=== PATIENT | female | born 1960 | race Two or more races ===

== ENCOUNTER 2024-09-23 14:59 | Inpatient (IN) | payer MEDICAID, OTHER ==
[~2024-09-23] VITALS: Ht 167.6 cm; Wt 86.4 kg
[2024-09-23] MEDS: SODIUM CHLORIDE 0.9% 1,000 ML IV ONE (15:36)
[2024-09-23 15:57] LABS: Basophils # (auto) 0.1 10 ^3/uL (0-0.2); Basophils % (auto) 0.8 % (0.0-2.0); Eosinophils # (auto) 0.3 10 ^3/uL (0-0.8); Lymphocytes # (auto) 2.1 10 ^3/uL (0.4-5.4); Mean Corpuscular Hemoglobin 28.9 pg (28.0-32.0)
[2024-09-23 15:58] LABS: Eosinophils % (auto) 4.6 % (0.0-7.0); Hematocrit 30.5 % (36.0-46.0); Lymphocytes % (auto) 29.5 % (10.0-50.0); Mean Corpuscular Hgb Conc. 32.7 g/dL (32.0-36.0); Mean Corpuscular Volume 88.5 fL (80.0-100.0); Monocytes # (auto) 0.6 10 ^3/uL (0-1.3); Monocytes % (auto) 8.6 % (0.0-12.0); Neutrophils # (auto) 4.1 10 ^3/uL (1.6-8.6); Neutrophils % (auto) 56.5 % (37.0-80.0); Platelet Count (auto) 627 10^3/uL (140-450); Red Blood Cells 3.45 10^6/uL (4.0-5.20); Red Cell Distribution Width 14.6 % (11.8-14.3); White Blood Cell 7.2 10^3/uL (4.4-10.8)
[2024-09-23 16:08] VITALS: PULSE 67; RESP 15; O2SAT 98
[2024-09-23 16:11] LABS: Alanine Aminotransferase 20 U/L (7-40); Albumin 3.9 g/dL (3.2-4.8); Alkaline Phosphatase 97 U/L (46-116); Anion Gap 7 (5-15); Aspartate Aminotransferase 31 U/L (13-40); Calcium 9.7 mg/dL (8.7-10.4); Carbon Dioxide 27 mmol/L (20-31); Chloride 105 mmol/L (98-107); Potassium 4.4 mmol/L (3.5-5.1); Sodium 139 mmol/L (136-145)
[2024-09-23 16:12] LABS: Bilirubin, Total 0.3 mg/dL (0.2-1.0); Total Protein 6.9 g/dL (5.7-8.2)
--- NOTE | 2024-09-23 16:13 | DVH ---
CHEST RADIOGRAPH Indication: Shortness of breath Technique: Single frontal view of the chest was obtained COMPARISON: None FINDINGS: Lines and Tubes: None Lungs: Increased interstitial prominence Pleura: No effusion. No pneumothorax. Cardiomediastinal contours: Unremarkable Bones: Unremarkable IMPRESSION: Mild congestion
[2024-09-23 16:20] LABS: Blood Urea Nitrogen 23 mg/dL (9-23); Glucose 185 mg/dL (74-106)
--- NOTE | 2024-09-23 17:19 | ED.PDOC ---
HPI (NEURO) HPI Comments 64y F who presents to the ED via EMS for chief complaint of dizziness. pt states she has been having dizziness and generalized weakness for the past 1 days. Pt states she has been having weakness and malaise which has gotten progressively worse and called EMS to the scene. EMS states pt had vitals checked upon arrival and pt was noted to have BP pf 105 / 58 and states despite having history of HTN, pt took her HTN Meds yesterday but not today. Pt states otherwise has was discharged from [facility] [place] cancer resection and discharged on Thursday to home. Pt states since, she has been having generalized aches and pains with noted abdominal pain. Pt states she was given pain Meds after discharge from [facility] but states they have not helped. Pt otherwise denies any other symptoms at this time. 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 Family History Family History: Unknown Social History Smoker: Non-Smoker Alcohol: Denies ETOH Use Drugs: Denies Drug Use Lives In: Home Constitutional: reports: malaise, weakness; denies: chills, diaphoresis, fatig ue, fever, sweats, others EENTM: denies: blurred vision, double vision, ear bleeding, ear discharge, ear drainage, ear pain, ear ringing, eye pain, eye redness, hearing loss, mouth pain, mouth swelling, nasal discharge, nose bleeding, nose congestion, nose pain, photophobia, tearing, throat pain, throat swelling, voice changes, others Respiratory: denies: cough, hemoptysis, orthopnea, SOB at rest, shortness of breath, SOB with excertion, stridor, wheezing, others Cardiovascular: denies: chest pain, dizzy spells, diaphoresis, Dyspnea on exertion, edema, irregular heart beat, left arm pain, lightheadedness, palpitations, PND, syncope, others Gastrointestinal: reports: abdominal pain; denies: abdomen distended, blood streaked bowels, constipated, diarrhea, dysphagia, difficulty swallowing, hematemesis, melena, nausea, poor appetite, poor fluid intake, rectal bleeding, rectal pain, vomiting, others Genitourinary: denies: abnormal vagina bleeding, burning, dyspareunia, dysuria, flank pain, frequency, hematuria, incontinence, pain, , vagina discharge, urgency, others Neurological: reports: dizziness, weakness; denies: fainting, headache, left sided numbness, left sided weakness, numbness, paresthesia, pre-existing deficit, right sided numbness, right sided weakness, seizure, speech problems, tingling, tremors, others Musculoskeletal: denies: back pain, gout, joint pain, joint swelling, muscle pain, muscle stiffness, neck pain, others Integumetry: denies: bruises, change in color, change in hair/nails, dryness, laceration, lesions, lumps, rash, wounds, others Allergic/Immunocompromised: denies: Difficulty Healing, Frequent Infections, Hives, Itching, others Hematologic/Lymphatic: denies: anemia, blood clots, easy bleeding, easy bruisi ng, swollen glands, others Endocrine: denies: excessive hunger, excessive sweating, excessive thirst, exce ssive urination, flushing, intolerance to cold, intolerance to heat, unexplained weight gain, unexplained weight loss, others Psychiatric: denies: anxiety, bipolar disorder, depression, hopeless, panic disorder, schizophrenia, sleepless, suicidal, others All Other Systems: Reviewed and Negative Physical Exam General Appearance: Moderate Distress (Patient appears to be in moderate distress due to her general weakness and abdominal pain concerns.), Obese HEENT: Normal ENT Inspection, Pharynx Normal, TMs Normal Neck: Full Range of Motion, Non-Tender, Normal, Normal Inspection Respiratory: Chest Non-Tender, Lungs Clear, No Accessory Muscle Use, No Respiratory Distress, Normal Breath Sounds Cardiovascular: No Edema, No JVD, No Murmur, No Gallop, Normal Peripheral Pulses, Regular Rate/Rhythm Breast Exam: Deferred Gastrointestinal: Other (Diffuse abdominal tenderness to palpation. Surgical site appreciated. 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 Was a procedure done?: No Differential Diagnosis (SZ) General Weakness: Anemia, Dehydration, Electrolyte imbalance, Encephalopathy, Hypoglycemia, Hypotension, Hypovolemia, Other (chronic pain syndrome) Headache: Other (Dizziness) X-Ray, Labs, Meds, VS Vital Signs Date Time Temp Pulse Resp B/P (MAP) Pulse Ox O2 Delivery O2 Flow Rate FiO2 09/23/24 21:10 81 16 163/83 09/23/24 20:40 82 18 173/75 09/23/24 20:00 79 18 152/65 (94) 99 09/23/24 18:00 79 15 167/83 (111) 98 09/23/24 17:00 75 15 158/73 (101) 98 09/23/24 16:30 71 15 135/66 (89) 98 09/23/24 16:08 67 15 98 Room Air* 0 21 09/23/24 16:06 97.7 66 15 130/68 (88) 98 97.7 09/23/24 15:09 98.9 64 18 108/60 (76) 95 09/23/24 15:02 66 Lab Test 09/23/24 18:03 09/23/24 16:35 09/23/24 15:50 09/23/24 15:41 Range/Units Troponin I High Sensitivity 7 6 7 </=34 ng/L POC Glucose 191 H 70-106 mg/dl White Blood Count 7.2 4.4-10.8 10^3/uL Red Blood Count 3.45 L 4.0-5.20 10^6/uL Hemoglobin 10.0 L 12.2-16.2 g/dL Hematocrit 30.5 L 36.0-46.0 % Mean Corpuscular Volume 88.5 80.0-100.0 fL Mean Corpuscular Hemoglobin 28.9 28.0-32.0 pg Mean Corpuscular Hemoglobin Concent 32.7 32.0-36.0 g/dL Red Cell Distribution Width 14.6 H 11.8-14.3 % Platelet Count 627 H 140-450 10^3/uL Mean Platelet Volume 6.6 L 6.9-10.8 fL Neutrophils (%) (Auto) 56.5 37.0-80.0 % Lymphocytes (%) (Auto) 29.5 10.0-50.0 % Monocytes (%) (Auto) 8.6 0.0-12.0 % Eosinophils (%) (Auto) 4.6 0.0-7.0 % Basophils (%) (Auto) 0.8 0.0-2.0 % Neutrophils # (Auto) 4.1 1.6-8.6 10 ^3/uL Lymphocytes # (Auto) 2.1 0.4-5.4 10 ^3/uL Monocytes # (Auto) 0.6 0-1.3 10 ^3/uL Eosinophils # (Auto) 0.3 0-0.8 10 ^3/uL Basophils # (Auto) 0.1 0-0.2 10 ^3/uL Nucleated Red Blood Cells 0.0 % D-Dimer, Quantitative 20.23 H 0.0-0.49 mg/L FEU Sodium Level 139 136-145 mmol/L Potassium Level 4.4 3.5-5.1 mmol/L Chloride Level 105 98-107 mmol/L Carbon Dioxide Level 27 20-31 mmol/L Anion Gap 7 5-15 Blood Urea Nitrogen 23 9-23 mg/dL Creatinine 1.44 H 0.550-1.02 mg/dL Glomerular Filtration Rate Calc 41 >90 mL/min BUN/Creatinine Ratio 16.0 10.0-20.0 Serum Glucose 185 H 74-106 mg/dL Calcium Level 9.7 8.7-10.4 mg/dL Total Bilirubin 0.3 0.2-1.0 mg/dL Aspartate Amino Transferase (AST) 31 13-40 U/L Alanine Aminotransferase (ALT) 20 7-40 U/L Alkaline Phosphatase 97 46-116 U/L B-Type Natriuretic Peptide 85.15 0-100 pg/mL Total Protein 6.9 5.7-8.2 g/dL Albumin 3.9 3.2-4.8 g/dL Test 09/23/24 00:00 Range/Units Urine Color Light-yellow Yellow Urine Clarity Turbid H Clear Urine pH 6.0 5.0-9.0 Urine Specific [place] 1.015 1.001-1.035 Urine Protein Negative Negative Urine Ketones Negative Negative Urine Blood Negative Negative /uL Urine Nitrite Negative Negative Urine Bilirubin Negative Negative Urine Urobilinogen Normal Negative mg/dL Urine Leukocyte Esterase Trace Negative /uL Urine RBC 4 0 - 4 /hpf Urine WBC 19 0 - 5 /hpf Urine Squamous Epithelial Cells Few <5 /hpf Urine Bacteria None seen None Seen /hpf Urine Yeast (Budding) Many None Seen /hpf Urine Glucose Normal Normal mg/dL Current Medications Medications (Trade) Dose Ordered Sig/Reji Route Start Time Stop Time Status Last Admin Sodium Chloride 1,000 ml @ 200 mls/hr Q5H ONCE IV 09/23/24 15:30 09/23/24 20:29 DC 09/23/24 15:36 Acetaminophen/ Hydrocodone Bitart ([place] 5/325MG Tab) 1 tab ONCE ONCE PO 09/23/24 17:45 09/23/24 17:46 DC 09/23/24 18:06 Hydromorphone HCl (Dilaudid Innjection) 1 mg ONCE ONCE IV 09/23/24 20:15 09/23/24 20:16 DC 09/23/24 20:40 [place] [id number] Ph: [phone] DIAGNOSTIC IMAGING Diagnostic Imaging Report : [id number] Signed PATIENT: AMRITA SILVA ACCT: [id number] UNIT: [id number] : 1960 LOC: ER ROOM / BED: / AGE / SEX: 64 / F ADM STATUS: REG ER SERVICE 1521 ORDERING PHYSICIAN: SCOOTER SOSA PAC PROCEDURE(s): CXRP - CHEST PORTABLE REASON: Shortness of breath ORDER NUMBER(s): [id number], ACCESSION NUMBER(s): [id number] CHEST RADIOGRAPH Indication: Shortness of breath Technique: Single frontal view of the chest was obtained COMPARISON: None FINDINGS: Lines and Tubes: None Lungs: Increased interstitial prominence Pleura: No effusion. No pneumothorax. Cardiomediastinal contours: Unremarkable Bones: Unremarkable IMPRESSION: Mild congestion ATED BY: FEMI STERN MD DICTATED DATE/TIME: 09/23/241608 SIGNED BY: FEMI STERN MD SIGNED DATE/TIME: 09/23/24 160 CC: X-Ray, Labs, Meds, VS Comment All studies performed the ED today were evaluated by me personally. Serum laboratories revealed a mild anemia, an elevated D-dimer and urine results confirmed a UTI. CT angio confirmed a probable right middle lobe pulmonary emboli. Additionally, imaging sewed some dilation of the pulmonary trunk and stated concerns for pulmonary arterial hypertension. EKG revealed a sinus rhythm with a rate of 66. Abnormal R-wave progression was noted with a [place] interval of 181 and a QT interval of 390. Due to the unusual CT imaging findings and the continued abdominal pain concerns. Patient will be admitted for initial management of her PE as well as a cardiac and pulmonary evaluation to address her pulmonary arterial hypertension concerns. Time of 1ST Reevaluation: 22:16 Reevaluation 1ST: Improved Consultation: PCP, Cardiology, Pulmonary Patient Education/Counseling: Diagnosis, Treatment Family Education/Counseling: Diagnosis, Treatment, No Family Present Departure 1 Departure Time of Disposition: 22:17 Impression: Primary Impression: Pulmonary emboli Additional Impressions: Pulmonary arterial hypertension UTI (urinary tract infection) Postoperative pain Disposition: ADMITTED INPATIENT Condition: Stable Discharged With: Self Critical Care Note Critical Care Time?: No Stability Stability form required: No Heart Score Heart Score: Heart Score Response (Comments) Value History N/A 0 EKG Repolarization Disturb 1 Age 45-64 1 Risk Factors 1 or 2 risk factors 1 Troponin N/A 0 Total 3 I personally scribed for SCOOTER SOSA PAC ([email or web address]) on 09/23/24 at 17:19. Electronically submitted by Jeancarlos Albarado ([email or web address]). SCOOTER SOSA PAC Sep 23, 2024 17:19
[2024-09-23] MEDS: HYDROcodone-ACET 5/325MG TAB PO ONE (18:06)
--- NOTE | 2024-09-23 18:58 | ECG ---
[facility] Test Date: 2024-09-23 Test Time: 15:02:51 Pat Name: AMRITA SILVA Department: ED Room: 0292T Gender: F Ostomy Nurse: ROBI : 1960 Requested By: SCOOTER SOSA Order Number: [id number] Reading MD: Paulo Brewster Measurements Intervals [place] Rate: 66 P: 2 OK: 181 QRS: -13 QRSD: 96 T: 65 QT: 390 QTc: 409 Interpretive Statements Sinus rhythm Abnormal R-wave progression, early transition Electronically Signed On 09-30-2024 9:47:09 PST by Paulo Brewster Please click the below link to view image of tracing.
[2024-09-23 20:23] LABS: Urine Bacteria None Seen /hpf (None Seen)
[2024-09-23] MEDS: HYDROMORPHONE HCL 1 MG/ML INJ IV ONE (20:40)
[2024-09-23 20:42] LABS: Urine Blood Negative /uL (Negative); Urine Budding Yeast MANY /hpf (None Seen); Urine Clarity Turbid (Clear); Urine Color Light-Yellow (Yellow); Urine Protein, UAD Negative (Negative); Urine Specific Gravity 1.015 (1.001-1.035); Urine Urobilinogen Normal (Negative); Urine WBC 19 /hpf (0 - 5)
[2024-09-23] MEDS: IOHEXOL 350 MG/ML 100ML IJ ONE (21:30)
--- NOTE | 2024-09-23 22:05 | DVH ---
CLINICAL INFORMATION: 64 years old, Female; Elevated D-dimer. TECHNIQUE: Axial CTA images of the chest were obtained after the uneventful administration of 100 mL of Omnipaque 350 IV contrast. Coronal and sagittal reformatted images and MIP images were obtained, reviewed, and stored. One or more of the following dose reduction techniques were used: Automated exp osure control. Adjustment of mA and/or kV according to patient size. CTDIvol = 24.92 mGy DLP = 1904.38 mGy-cm COMPARISON: Chest radiograph 09/23/2024 FINDINGS: Thyroid gland is unremarkable. Inadequate contrast bolus timing within the pulmonary arteries to evaluate for pulmonary embolism. No pulmonary embolism is noted centrally. There is suggestion of filling defect within the right middle lobe segmental and subsegmental pulmonary arteries. There is no right heart strain. Mild cardiomegaly. No evidence of aortic aneurysm. Mild dilatation of the pulmonary trunk up to 32 mm . Correlate for pulmonary arterial hypertension. No significant mediastinal lymphadenopathy. No pneumothorax, pleural effusion or focal airspace consolidation. Bibasilar, and right upper lobe at electasis. Right basilar foci of calcification. Status post cholecystectomy. Otherwise, partial view of the upper abdomen is unremarkable. Partially imaged trace perihepatic free fluid. Mild subcutaneous fat edema of the lower posterior thorax.. No destructive osseous lesions are noted. IMPRESSION: Inadequate contrast bolus timing within the pulmonary arteries to evaluate for pulmonary embolism. H owever, there appears to be filling defect within right middle lobe segmental and subsegmental pulmon ryan arteries suggestive of pulmonary embolism. Bibasilar and right middle lobe atelectasis. Dilatation of the pulmonary trunk up to 32 mm. Correlate for pulmonary arterial hypertension. Critical Result: Right middle lobe pulmonary embolism Findings discussed with dr. Cope , at 09/23/2024 10:01 PM, and acknowledged receipt and understandin g of the findings. ..
[2024-09-23] MEDS: ENOXAPARIN SOD 40 MG/0.4 ML SYRINGE SC ONE (22:10)
[2024-09-23] MEDS: NITROFURANTOIN 100 mg CAP PO ONE (22:12)
[2024-09-23] MEDS ORDERED: ACETAMINOPHEN 325 MG TAB PO PRN (23:15)
[2024-09-23] MEDS ORDERED: ONDANSETRON HCL 4 MG/2 ML VIAL IV PRN (23:15)
[2024-09-23] MEDS ORDERED: NITROGLYCERIN 0.4 MG SL TAB SL PRN (23:15)
[2024-09-23] MEDS ORDERED: HEPARIN DRIP/D5W 100UNITS/ML 250 ML IV SCH (23:15)
[2024-09-23] MEDS ORDERED: DEXTROSE (50%) 50ML SYRG IV PRN (23:15)
[2024-09-23] MEDS ORDERED: DOCUSATE SOD 100 MG CAP PO PRN (23:15)
[2024-09-23] MEDS ORDERED: HYDROcodone-ACET 5/325MG TAB PO PRN (23:15)
[2024-09-23] MEDS ORDERED: MORPHINE SULFATE INJ 2 MG/ml SYRG IV PRN (23:15)
--- NOTE | 2024-09-23 23:21 | DVHHP2 ---
History of Present Illness Reason for Visit: Pulmonary emboli History of Present Illness The patient is a 64-year-old female past medical history of colon cancer, DM, hypothyroidism, and hypertension who presented to [facility] ED with complaint of dizziness. Patient reports symptoms progressively get worse with generalized weakness, malaise, abdominal pain, getting worse that prompted this visit. Patient reports she was recently admitted at [facility] for colon cancer resection and discharged home Thursday. Patient was seen and evaluated in the ED, laboratory data shows WBC 7.2, hemoglobin 10.0, hematocrit 30.5, platelets 627, sodium 139, potassium 4.4, BUN 23, creatinine 1.44, GFR 41, glucose 185, troponin 7, D-dimer 20.23. CT Angiography revealing dilatation of the pulmonary trunk up to 32 mm, correlate for pulmonary atrial hypertension, right middle lobe pulmonary embolism. Patient was started heparin drip, please see medication orders section in the computer. On my assessment, patient denied chest pain, no headache, no dizziness, no diaphoresis, currently on oxygen, no nausea, no vomiting, no fever, no chills. Patient was admitted for further evaluation and medical management. Past Medical History Colon cancer, DM, HTN Past Surgical History Recent colon cancer resection Family History Reviewed, noncontributory to the management of this case. Past Social History The patient lives at home, denies smoking, alcohol or illicit drugs abuse. Review of Systems Constitutional: Yes: Weakness, Malaise; No: Fever, Chills, Sweats, Other Eyes: No: Pain, Vision change, Conjunctivae inflammation, Eyelid inflammation, Other, Redness ENT: No: Ear pain, Ear discharge, Nose pain, Nose discharge, Nose congestion, Mouth pain, Mouth swelling, Throat pain, Throat swelling, Other Respiratory: No: Cough, Dry, Shortness of breath, SOB with excertion, Wheezing, Hemoptysis, Pleuritic Pain, Sputum, Wheezing, Other Cardiovascular: No: Chest Pain, Palpitations, Orthopnea, Paroxysmal Noc. Dyspnea, Edema, Lt Headedness, Other Gastrointestinal: Abdominal Pain; No: Nausea, Vomiting, Diarrhea, Constipation, Melena, Hematochezia, Other Genitourinary: No Dysuria, No Frequency, No Incontinence, No Hematuria, No Retention, No Other Musculoskeletal: No: other, neck pain, shoulder pain, arm pain, back pain, hand pain, leg pain, foot pain Skin: No: Rash, Lesions, Jaundice, Bruising, Other Neurological: Weakness, Other (Dizziness); No: Numbness, Incoordination, Change in speech, Confusion, Seizures Allergies: Coded Allergies: NO KNOWN ALLERGIES (Unverified , 09/23/24) Exam Vital Signs Vital Signs Date Time Temp Pulse Resp B/P (MAP) Pulse Ox O2 Delivery O2 Flow Rate FiO2 09/23/24 22:00 92 14 157/78 (104) 98 09/23/24 19:30 Room Air* 0 21 09/23/24 16:06 97.7 97.7 General Appearance: Alert, Oriented X3, Cooperative, No acute distress HEENT: Atraumatic, PERRLA, EOMI, Mucous membr. moist/pink Respiratory: Normal air movement, Other (Diminished breath sounds) Cardiovascular: Regular rate, Normal S1, Normal S2, No murmurs Abdominal: Normal bowel sounds, Soft, No hepatospenomegaly, No masses, Other (Reports tenderness) Extremities: No clubbing, No cyanosis, No edema, Normal pulses, No tenderness/swelling Skin: No rashes, No breakdown, No significant lesion Neuro: Normal speech, Normal tone, Sensation intact, Cranial nerves 3-12 NL, Reflexes 2+, Other (Generalized weakness) Psych/Mental Status: Mental status NL, Mood NL Labs/Xrays Labs Test 09/23/24 18:03 09/23/24 15:50 09/23/24 15:41 09/23/24 00:00 Range/Units Troponin I High Sensitivity 7 </=34 ng/L POC Glucose 191 H 70-106 mg/dl White Blood Count 7.2 4.4-10.8 10^3/uL Red Blood Count 3.45 L 4.0-5.20 10^6/uL Hemoglobin 10.0 L 12.2-16.2 g/dL Hematocrit 30.5 L 36.0-46.0 % Mean Corpuscular Volume 88.5 80.0-100.0 fL Mean Corpuscular Hemoglobin 28.9 28.0-32.0 pg Mean Corpuscular Hemoglobin Concent 32.7 32.0-36.0 g/dL Red Cell Distribution Width 14.6 H 11.8-14.3 % Platelet Count 627 H 140-450 10^3/uL Mean Platelet Volume 6.6 L 6.9-10.8 fL Neutrophils (%) (Auto) 56.5 37.0-80.0 % Lymphocytes (%) (Auto) 29.5 10.0-50.0 % Monocytes (%) (Auto) 8.6 0.0-12.0 % Eosinophils (%) (Auto) 4.6 0.0-7.0 % Basophils (%) (Auto) 0.8 0.0-2.0 % Neutrophils # (Auto) 4.1 1.6-8.6 10 ^3/uL Lymphocytes # (Auto) 2.1 0.4-5.4 10 ^3/uL Monocytes # (Auto) 0.6 0-1.3 10 ^3/uL Eosinophils # (Auto) 0.3 0-0.8 10 ^3/uL Basophils # (Auto) 0.1 0-0.2 10 ^3/uL Nucleated Red Blood Cells 0.0 % D-Dimer, Quantitative 20.23 H 0.0-0.49 mg/L FEU Sodium Level 139 136-145 mmol/L Potassium Level 4.4 3.5-5.1 mmol/L Chloride Level 105 98-107 mmol/L Carbon Dioxide Level 27 20-31 mmol/L Anion Gap 7 5-15 Blood Urea Nitrogen 23 9-23 mg/dL Creatinine 1.44 H 0.550-1.02 mg/dL Glomerular Filtration Rate Calc 41 >90 mL/min BUN/Creatinine Ratio 16.0 10.0-20.0 Serum Glucose 185 H 74-106 mg/dL Calcium Level 9.7 8.7-10.4 mg/dL Total Bilirubin 0.3 0.2-1.0 mg/dL Aspartate Amino Transferase (AST) 31 13-40 U/L Alanine Aminotransferase (ALT) 20 7-40 U/L Alkaline Phosphatase 97 46-116 U/L B-Type Natriuretic Peptide 85.15 0-100 pg/mL Total Protein 6.9 5.7-8.2 g/dL Albumin 3.9 3.2-4.8 g/dL Urine Color Light-yellow Yellow Urine Clarity Turbid H Clear Urine pH 6.0 5.0-9.0 Urine Specific [place] 1.015 1.001-1.035 Urine Protein Negative Negative Urine Ketones Negative Negative Urine Blood Negative Negative /uL Urine Nitrite Negative Negative Urine Bilirubin Negative Negative Urine Urobilinogen Normal Negative mg/dL Urine Leukocyte Esterase Trace Negative /uL Urine RBC 4 0 - 4 /hpf Urine WBC 19 0 - 5 /hpf Urine Squamous Epithelial Cells Few <5 /hpf Urine Bacteria None seen None Seen /hpf Urine Yeast (Budding) Many None Seen /hpf Urine Glucose Normal Normal mg/dL PATIENT: AMRITA SILVA ACCT: [id number] UNIT: [id number] : 1960 LOC: ER ROOM / BED: / AGE / SEX: 64 / F ADM STATUS: REG ER SERVICE 53 ORDERING PHYSICIAN: SCOOTER COPE PAC PROCEDURE(s): CTACH - CT ANGIO CHEST CONTRAST REASON: Elevated D-dimer ORDER NUMBER(s): [id number], ACCESSION NUMBER(s): [id number] CLINICAL INFORMATION: 64 years old, Female; Elevated D-dimer. TECHNIQUE: Axial CTA images of the chest were obtained after the uneventful administration of 100 mL of Omnipaque 350 IV contrast. Coronal and sagittal reformatted images and MIP images were obtained, reviewed, and stored. One or more of the following dose reduction techniques were used: Automated exposure control. Adjustment of mA and/or kV according to patient size. CTDIvol = 24.92 mGy DLP = 1904.38 mGy-cm COMPARISON: Chest radiograph 09/23/2024 FINDINGS: Thyroid gland is unremarkable. Inadequate contrast bolus timing within the pulmonary arteries to evaluate for pulmonary embolism. No pulmonary embolism is noted centrally. There is suggestion of filling defect within the right middle lobe segmental and subsegmental pulmonary arteries. There is no right heart strain. Mild cardiomegaly. No evidence of aortic aneurysm. Mild dilatation of the pulmonary trunk up to 32 mm. Correlate for pulmonary arterial hypertension. No significant mediastinal lymphadenopathy. No pneumothorax, pleural effusion or focal airspace consolidation. Bibasilar, and right upper lobe atelectasis. Right basilar foci of calcification. Status post cholecystectomy. Otherwise, partial view of the upper abdomen is u nremarkable. Partially imaged trace perihepatic free fluid. Mild subcutaneous fat edema of the lower posterior thorax. No destructive osseous lesions are noted. IMPRESSION: Inadequate contrast bolus timing within the pulmonary arteries to evaluate for pulmonary embolism. However, there appears to be filling defect within right middle lobe segmental and subsegmental pulmonary arteries suggestive of pulmonary embolism. Bibasilar and right middle lobe atelectasis. Dilatation of the pulmonary trunk up to 32 mm. Correlate for pulmonary arterial hypertension. Critical Result: Right middle lobe pulmonary embolism Findings discussed with dr. Cope, at 09/23/2024 10:01 PM, and acknowledged receipt and understanding of the findings. ORDERING PHYSICIAN: SCOOTER COPE PAC PROCEDURE(s): CXRP - CHEST PORTABLE REASON: Shortness of breath ORDER NUMBER(s): [id number], ACCESSION NUMBER(s): [id number] CHEST RADIOGRAPH Indication: Shortness of breath Technique: Single frontal view of the chest was obtained COMPARISON: None FINDINGS: Lines and Tubes: None Lungs: Increased interstitial prominence Pleura: No effusion. No pneumothorax. Cardiomediastinal contours: Unremarkable Bones: Unremarkable IMPRESSION: Mild congestion Assessment/Plan Assessment/Plan Pulmonary emboli Postoperative pain Pulmonary arterial hypertension Acute renal injury Diabetes mellitus with hyperglycemia Plan 1. Admit to telemetry unit 2. Breathing treatment 3. Pain control management 4. Management of fluids and electrolytes 5. Consultation for pulmonology 6. Diagnostic tests CT Angiography 7. DVT prophylaxis-heparin drip 8. Repeat labs CBC, CMP in a.m. 9. Continue with current medical management 10. Treatment plan discussed with patient and RN. Patient verbalized understanding. Plan discussed with: Patient, Daughter (At bedside), Other (RN) Problem List: (1) Pulmonary emboli (2) Postoperative pain (3) Pulmonary arterial hypertension (4) Acute renal injury (5) Diabetes mellitus with hyperglycemia Date of Service: Sep 23, 2024 Billing Provider: JUANITO JONAS DNP Common Visit Codes: [id number] INP/OBS CARE (HIGH) JUANITO JONAS DNP Sep 23, 2024 23:21
[2024-09-23] MEDS: SODIUM CHLORIDE 0.9% 1,000 ML IV SCH (23:47)
[2024-09-23] MEDS: MORPHINE SULFATE INJ 2 MG/ml SYRG IV PRN (23:48)
[2024-09-24] VITALS (7 sets, daily range): BP systolic 117–159; BP diastolic 55–74; PULSE 66–90; RESP 16–18; TEMP 97.4–98.8; O2SAT 96–100
[2024-09-24 00:12] LABS: Basophils # (auto) 0 10 ^3/uL (0-0.2); Eosinophils # (auto) 0.3 10 ^3/uL (0-0.8); Hemoglobin 10.1 g/dL (12.2-16.2); Monocytes # (auto) 0.5 10 ^3/uL (0-1.3); Nucleated Red Blood Cells % 0.1 %; White Blood Cell 7.1 10^3/uL (4.4-10.8)
[2024-09-24 00:13] LABS: Basophils % (auto) 0.6 % (0.0-2.0); Eosinophils % (auto) 4.5 % (0.0-7.0); Hematocrit 30.8 % (36.0-46.0); Lymphocytes # (auto) 2.7 10 ^3/uL (0.4-5.4); Lymphocytes % (auto) 37.4 % (10.0-50.0); Mean Corpuscular Hgb Conc. 32.7 g/dL (32.0-36.0); Mean Corpuscular Volume 88.5 fL (80.0-100.0); Monocytes % (auto) 6.4 % (0.0-12.0); Neutrophils # (auto) 3.6 10 ^3/uL (1.6-8.6); Neutrophils % (auto) 51.1 % (37.0-80.0); Platelet Count (auto) 653 10^3/uL (140-450); Red Blood Cells 3.48 10^6/uL (4.0-5.20); Red Cell Distribution Width 14.1 % (11.8-14.3)
[2024-09-24] MEDS: hydrALAZINE HCL 20 MG/ML VL IV PRN (00:25)
[2024-09-24 00:27] LABS: INR 1.12 (0.9-1.15); Partial Thromboplastin Time 29.8 SEC (24.5-34.5); Prothrombin Time 11.8 sec (9.3-11.8)
[2024-09-24] MEDS: HEPARIN DRIP/D5W 100UNITS/ML 250 ML IV SCH (01:38)
[2024-09-24] MEDS: LEVOTHYROXINE SODIUM 112 MCG TAB PO SCH (05:59)
[2024-09-24] MEDS: ACCU-CHEK COMFORT CURVE STRIP VI SCH (06:01)
[2024-09-24] MEDS: InsuLIN REG 1unit/0.01ml Soln (100units/ml) SC SCH ×2 (06:04→21:32)
[2024-09-24] MEDS: amLODIPine BESYLATE 5 MG TAB PO SCH (10:19)
[2024-09-24 10:56] LABS: Basophils # (auto) 0 10 ^3/uL (0-0.2); Hemoglobin 9.2 g/dL (12.2-16.2); Neutrophils # (auto) 3.6 10 ^3/uL (1.6-8.6); Nucleated Red Blood Cells % 0.1 %; White Blood Cell 6.7 10^3/uL (4.4-10.8)
[2024-09-24 10:58] LABS: Basophils % (auto) 0.7 % (0.0-2.0); Eosinophils # (auto) 0.4 10 ^3/uL (0-0.8); Eosinophils % (auto) 5.2 % (0.0-7.0); Lymphocytes # (auto) 2.1 10 ^3/uL (0.4-5.4); Lymphocytes % (auto) 31.7 % (10.0-50.0); Mean Corpuscular Hgb Conc. 32.8 g/dL (32.0-36.0); Mean Corpuscular Volume 88.4 fL (80.0-100.0); Monocytes # (auto) 0.6 10 ^3/uL (0-1.3); Neutrophils % (auto) 53.4 % (37.0-80.0); Platelet Count (auto) 539 10^3/uL (140-450); Red Blood Cells 3.17 10^6/uL (4.0-5.20); Red Cell Distribution Width 14.6 % (11.8-14.3)
[2024-09-24 11:12] LABS: Alanine Aminotransferase 16 U/L (7-40); Albumin 3.7 g/dL (3.2-4.8); Alkaline Phosphatase 86 U/L (46-116); Anion Gap 9 (5-15); Aspartate Aminotransferase 31 U/L (13-40); BUN/Creatinine Ratio 16.7 (10.0-20.0); Bilirubin, Total 0.5 mg/dL (0.2-1.0); Blood Urea Nitrogen 17 mg/dL (9-23); Calcium 9.5 mg/dL (8.7-10.4); Carbon Dioxide 24 mmol/L (20-31); Sodium 140 mmol/L (136-145); Total Protein 6.8 g/dL (5.7-8.2)
[2024-09-24 11:14] LABS: Chloride 107 mmol/L (98-107); Glucose 199 mg/dL (74-106)
[2024-09-24 11:25] LABS: INR 1.15 (0.9-1.15); Prothrombin Time 12.1 sec (9.3-11.8)
[2024-09-24 11:29] LABS: Partial Thromboplastin Time 93.9 SEC (24.5-34.5)
[2024-09-24] MEDS ORDERED: HEPARIN DRIP/D5W 100UNITS/ML 250 ML IV SCH (13:30)
--- NOTE | 2024-09-24 14:41 | DVHPN2 ---
Subjective 64-year-old female with a history of colon cancer status post surgery 3 weeks ago, type 2 diabetes, hypothyroidism, hypertension came with a chief complaint of dizziness Evaluation here showed pulmonary embolism of the right lung She is on room air Changes from previous H/P or p: Changes Eyes: No Pain, No Vision change, No Conjunctivae inflammation, No Eyelid inflammation, No Other, No Redness ENT: No Ear pain, No Ear discharge, No Nose pain, No Nose discharge, No Nose congestion, No Mouth pain, No Mouth swelling, No Throat pain, No Throat swelling, No Other Cardiovascular: No Chest Pain, No Palpitations, No Orthopnea, No Paroxysmal Noc. Dyspnea, No Edema, No Lt Headedness, No Other Respiratory: No Cough, No Dry, No Shortness of breath, No SOB with excertion, No Wheezing, No Hemoptysis, No Pleuritic Pain, No Sputum, No Other Gastrointestinal: No Nausea, No Vomiting; Abdominal Pain; No Diarrhea, No Constipation, No Melena, No Hematochezia, No Other Genitourinary: No Dysuria, No Frequency, No Incontinence, No Hematuria, No Retention, No Other Musculoskeletal: No other, No neck pain, No shoulder pain, No arm pain, No back pain, No hand pain, No leg pain, No foot pain Skin: No Rash, No Lesions, No Jaundice, No Bruising, No Other Objective Vitals Vital Signs Date Time Temp Pulse Resp B/P (MAP) Pulse Ox O2 Delivery O2 Flow Rate FiO2 09/24/24 13:00 97.9 90 16 159/74 (102) 100 97.9 09/24/24 08:00 Room Air* 0 21 Intake/Output Intake and Output 09/24/24 07:00 Intake Total 1000 ml Balance 1000 ml Intake Oral 0 ml IV Total 1000 ml General Appearance: Alert, Oriented X3, Cooperative Lungs: Clear to auscultation, Normal air movement Cardiovascular: Regular rate, Normal S1, Normal S2 Abdomen: Normal bowel sounds, Soft, No tenderness Extremities: No edema Medications Current Medications Medications Dose Ordered Sig/Reji Route Start Time Stop Time Status Last Admin Dose Admin Levothyroxine Sodium 112 mcg QAM@0600 PO 09/24/24 06:00 09/24/24 05:59 112 MCG Amlodipine Besylate 5 mg DAILY PO 09/24/24 10:00 09/24/24 10:19 5 MG Hydralazine HCl 10 mg Q6HP PRN IV 09/23/24 23:15 09/24/24 00:25 10 MG Diagnostic Test (Pha) 1 strip ACHS 09/24/24 07:00 09/24/24 11:27 1 STRIP Insulin Human Regular HS SC 09/24/24 22:00 Insulin Human Regular AC SC 09/24/24 07:00 09/24/24 11:33 3 UNITS Dextrose 50 ml UD PRN IV 09/23/24 23:15 Sodium Chloride 1,000 ml @ 60 mls/hr [id number] IV 09/23/24 23:15 09/23/24 23:47 60 MLS/HR Acetaminophen/ Hydrocodone Bitart 1 tab Q4HP PRN PO 09/23/24 23:15 Ondansetron HCl 4 mg Q4HP PRN IV 09/23/24 23:15 Docusate Sodium 100 mg BIDPRN PRN PO 09/23/24 23:15 Acetaminophen 650 mg Q6HP PRN PO 09/23/24 23:15 Morphine Sulfate 2 mg Q4HPRN PRN IV 09/23/24 23:15 09/24/24 11:27 2 MG Nitroglycerin 0.4 mg Q5MINP PRN SL 09/23/24 23:15 Morphine Sulfate 2 mg Q30M PRN IV 09/23/24 23:15 Heparin Sodium/ Dextrose 250 ml @ 13 mls/hr [id number] IV 09/24/24 13:30 Laboratory Results Laboratory Tests 09/24/24 10:38 Chemistry Test 09/23/24 15:41 09/24/24 10:38 Albumin 3.9 g/dL (3.2-4.8) 3.7 g/dL (3.2-4.8) Calcium Level 9.7 mg/dL (8.7-10.4) 9.5 mg/dL (8.7-10.4) Total Protein 6.9 g/dL (5.7-8.2) 6.8 g/dL (5.7-8.2) Coagulation Test 09/23/24 15:41 09/23/24 23:29 09/24/24 10:38 D-Dimer, Quantitative 20.23 mg/L FEU (0.0-0.49) H Prothrombin Time 11.8 sec (9.3-11.8) 12.1 sec (9.3-11.8) H Prothrombin Time INR 1.12 (0.9-1.15) 1.15 (0.9-1.15) Activated Partial Thromboplast Time 29.8 SEC (24.5-34.5) 93.9 SEC (24.5-34.5) *H Cardiac Markers Test 09/23/24 15:41 B-Type Natriuretic Peptide 85.15 pg/mL (0-100) LFT Test 09/23/24 15:41 09/24/24 10:38 Alanine Aminotransferase (ALT) 20 U/L (7-40) 16 U/L (7-40) Alkaline Phosphatase 97 U/L (46-116) 86 U/L (46-116) Aspartate Amino Transferase (AST) 31 U/L (13-40) 31 U/L (13-40) Total Bilirubin 0.3 mg/dL (0.2-1.0) 0.5 mg/dL (0.2-1.0) HgA1c, TSH Test 09/23/24 23:29 Thyroid Stimulating Hormone (TSH) 5.72 uIU/mL (0.55-4.78) H Urinalysis Test 09/23/24 00:00 Urine Color Light-yellow (Yellow) Urine Clarity Turbid (Clear) H Urine pH 6.0 (5.0-9.0) Urine Specific [place] 1.015 (1.001-1.035) Urine Protein Negative (Negative) Urine Ketones Negative (Negative) Urine Blood Negative /uL (Negative) Urine Nitrite Negative (Negative) Urine Bilirubin Negative (Negative) Urine Urobilinogen Normal mg/dL (Negative) Urine Leukocyte Esterase Trace /uL (Negative) Urine RBC 4 /hpf (0 - 4) Urine WBC 19 /hpf (0 - 5) Urine Squamous Epithelial Cells Few /hpf (<5) Urine Bacteria None seen /hpf (None Seen) Urine Yeast (Budding) Many /hpf (None Seen) Urine Glucose Normal mg/dL (Normal) Assessment/Plan Assessment/Plan Acute pulmonary embolism History of PE many years ago after surgery Colon cancer status post recent surgery Hypertension Type 2 diabetes Hypothyroidism Chronic anemia, normocytic Plan Discontinue heparin drip and start Eliquis Discontinue IV fluids Resume the home medications Pain management with Percocet p.r.n. Physical therapy Full code Advance directives discussed for 18 minutes Plan discussed with: Patient Date of Service: Sep 24, 2024 Billing Provider: MICHELINE PEREZ MD Common Visit Codes: [id number] INP/OBS CARE(HIGH) Secondary Visit Codes: [id number] CARE PLAN 30 MINUTES MICHELINE PEREZ MD Sep 24, 2024 14:40
[2024-09-24] MEDS: OXYCODONE W/ ACETAMINOPHEN 5/325MG TABLET PO PRN (17:11)
[2024-09-24 20:05] LABS: INR 1.09 (0.9-1.15); Partial Thromboplastin Time 26.5 SEC (24.5-34.5); Prothrombin Time 11.5 sec (9.3-11.8)
[2024-09-24] MEDS: APIXABAN 5 MG TAB PO SCH (21:32)
[2024-09-25] VITALS (15 sets, daily range): BP systolic 72–199; BP diastolic 39–98; PULSE 63–95; RESP 16–20; TEMP 97.9–98.8; O2SAT 92–100
[2024-09-25] MEDS: ALBUTEROL SULF 2.5 MG/0.5ML(0.5%) NEB SOLN NEB PRN (00:45)
--- NOTE | 2024-09-25 00:48 | DVH ---
CHEST RADIOGRAPH Indication: SOB Technique: Single frontal view of the chest was obtained Comparison: XY CHEST PORTABLE on DOS: 09/23/24 FINDINGS: Lines and Tubes: None Lungs: Clear Pleura: No effusion. No pneumothorax. Cardiomediastinal contours: Unremarkable Bones: Unremarkable IMPRESSION: 1. Clear lungs.
[2024-09-25] MEDS: OXYCODONE W/ ACETAMINOPHEN 5/325MG TABLET PO PRN (00:49)
[2024-09-25 05:47] LABS: Basophils # (auto) 0 10 ^3/uL (0-0.2); Eosinophils # (auto) 0.2 10 ^3/uL (0-0.8); Lymphocytes # (auto) 1.5 10 ^3/uL (0.4-5.4); Monocytes # (auto) 0.5 10 ^3/uL (0-1.3); Neutrophils # (auto) 3.4 10 ^3/uL (1.6-8.6); Nucleated Red Blood Cells % 0.1 %
[2024-09-25 05:51] LABS: Basophils % (auto) 0.8 % (0.0-2.0); Eosinophils % (auto) 3.4 % (0.0-7.0); Hematocrit 33.2 % (36.0-46.0); Mean Corpuscular Hemoglobin 28.7 pg (28.0-32.0); Mean Corpuscular Hgb Conc. 33.1 g/dL (32.0-36.0); Mean Corpuscular Volume 86.9 fL (80.0-100.0); Monocytes % (auto) 8.2 % (0.0-12.0); Neutrophils % (auto) 60.6 % (37.0-80.0); Platelet Count (auto) 597 10^3/uL (140-450); Red Blood Cells 3.82 10^6/uL (4.0-5.20); Red Cell Distribution Width 14.3 % (11.8-14.3); White Blood Cell 5.6 10^3/uL (4.4-10.8)
[2024-09-25 06:11] LABS: Alanine Aminotransferase 18 U/L (7-40); Alkaline Phosphatase 98 U/L (46-116); Anion Gap 11 (5-15); Carbon Dioxide 23 mmol/L (20-31); Chloride 104 mmol/L (98-107); Magnesium 1.7 mg/dL (1.6-2.6); Potassium 3.8 mmol/L (3.5-5.1); Sodium 138 mmol/L (136-145)
[2024-09-25 06:12] LABS: Albumin 4.3 g/dL (3.2-4.8); Aspartate Aminotransferase 29 U/L (13-40); HDL Cholesterol 50 mg/dL (40-59)
[2024-09-25 06:13] LABS: Bilirubin, Total 0.8 mg/dL (0.2-1.0)
[2024-09-25 06:18] LABS: Blood Urea Nitrogen 9 mg/dL (9-23); Calcium 10.4 mg/dL (8.7-10.4); Cholesterol 223 mg/dL (< 200); Glucose 199 mg/dL (74-106); LDL Cholesterol 118 mg/dL (< 100); Triglycerides 221 mg/dL (< 150)
[2024-09-25] MEDS ORDERED: AMLO1TAB22 PO (09:36)
[2024-09-25] MEDS ORDERED: VALS1TAB58 PO (09:38)
[2024-09-25] MEDS ORDERED: LEVO112C3 PO (09:39)
[2024-09-25] MEDS ORDERED: CARV25TA55 PO (09:40)
[2024-09-25] MEDS ORDERED: TIZA4CAP PO (09:40)
--- NOTE | 2024-09-25 13:38 | DVHPN2 ---
Subjective Feels better Changes from previous H/P or p: Changes Eyes: No Pain, No Vision change, No Conjunctivae inflammation, No Eyelid inflammation, No Other, No Redness ENT: No Ear pain, No Ear discharge, No Nose pain, No Nose discharge, No Nose congestion, No Mouth pain, No Mouth swelling, No Throat pain, No Throat swelling, No Other Cardiovascular: No Chest Pain, No Palpitations, No Orthopnea, No Paroxysmal Noc. Dyspnea, No Edema, No Lt Headedness, No Other Respiratory: No Cough, No Dry, No Shortness of breath, No SOB with excertion, No Wheezing, No Hemoptysis, No Pleuritic Pain, No Sputum, No Other Gastrointestinal: No Nausea, No Vomiting; Abdominal Pain; No Diarrhea, No Constipation, No Melena, No Hematochezia, No Other Genitourinary: No Dysuria, No Frequency, No Incontinence, No Hematuria, No Retention, No Other Musculoskeletal: No other, No neck pain, No shoulder pain, No arm pain, No back pain, No hand pain, No leg pain, No foot pain Skin: No Rash, No Lesions, No Jaundice, No Bruising, No Other Objective Vitals Vital Signs Date Time Temp Pulse Resp B/P (MAP) Pulse Ox O2 Delivery O2 Flow Rate FiO2 09/25/24 12:54 98.4 86 20 175/74 (107) 97 98.4 09/25/24 10:00 Room Air* 0 21 Intake/Output Intake and Output 09/25/24 07:00 Intake Total 890 ml Balance 890 ml Intake Oral 890 ml # Voids 6 # Bowel Movements 1 General Appearance: Alert, Oriented X3, Cooperative Lungs: Clear to auscultation, Normal air movement Cardiovascular: Regular rate, Normal S1, Normal S2 Abdomen: Normal bowel sounds, Soft, No tenderness Extremities: No edema Medications Current Medications Medications Dose Ordered Sig/Reji Route Start Time Stop Time Status Last Admin Dose Admin Levothyroxine Sodium 112 mcg QAM@0600 PO 09/24/24 06:00 09/25/24 06:24 112 MCG Amlodipine Besylate 5 mg DAILY PO 09/24/24 10:00 09/25/24 09:34 5 MG Hydralazine HCl 10 mg Q6HP PRN IV 09/23/24 23:15 09/24/24 23:45 10 MG Diagnostic Test (Pha) 1 strip ACHS 09/24/24 07:00 09/25/24 11:32 1 STRIP Insulin Human Regular HS SC 09/24/24 22:00 09/24/24 21:32 3 UNITS Insulin Human Regular AC SC 09/24/24 07:00 09/25/24 11:45 3 UNITS Dextrose 50 ml UD PRN IV 09/23/24 23:15 Ondansetron HCl 4 mg Q4HP PRN IV 09/23/24 23:15 Docusate Sodium 100 mg BIDPRN PRN PO 09/23/24 23:15 Acetaminophen 650 mg Q6HP PRN PO 09/23/24 23:15 Morphine Sulfate 2 mg Q4HPRN PRN IV 09/23/24 23:15 09/25/24 06:24 2 MG Nitroglycerin 0.4 mg Q5MINP PRN SL 09/23/24 23:15 Morphine Sulfate 2 mg Q30M PRN IV 09/23/24 23:15 Oxycodone/ Acetaminophen 1 tab Q6HP PRN PO 09/24/24 14:45 09/25/24 09:45 1 TAB Oxycodone/ Acetaminophen 2 tab Q6HP PRN PO 09/24/24 14:45 09/25/24 03:20 2 TAB Apixaban 10 mg BID PO 09/24/24 22:00 10/01/24 21:59 09/25/24 09:34 10 MG Albuterol 1.25 mg Q4HPRN PRN NEB 09/25/24 00:30 09/25/24 00:45 1.25 MG Laboratory Results Laboratory Tests 09/25/24 05:09 Chemistry Test 09/25/24 05:09 Albumin 4.3 g/dL (3.2-4.8) Calcium Level 10.4 mg/dL (8.7-10.4) Magnesium Level 1.7 mg/dL (1.6-2.6) Total Protein 8.0 g/dL (5.7-8.2) Coagulation Test 09/24/24 19:30 Prothrombin Time 11.5 sec (9.3-11.8) Prothrombin Time INR 1.09 (0.9-1.15) Activated Partial Thromboplast Time 26.5 SEC (24.5-34.5) Lipid panel Test 09/25/24 05:09 Cholesterol Level 223 mg/dL (< 200) H HDL Cholesterol 50 mg/dL (40-59) Triglycerides Level 221 mg/dL (< 150) H LFT Test 09/25/24 05:09 Alanine Aminotransferase (ALT) 18 U/L (7-40) Alkaline Phosphatase 98 U/L (46-116) Aspartate Amino Transferase (AST) 29 U/L (13-40) Total Bilirubin 0.8 mg/dL (0.2-1.0) Urinalysis Test 09/23/24 00:00 Urine Color Light-yellow (Yellow) Urine Clarity Turbid (Clear) H Urine pH 6.0 (5.0-9.0) Urine Specific [place] 1.015 (1.001-1.035) Urine Protein Negative (Negative) Urine Ketones Negative (Negative) Urine Blood Negative /uL (Negative) Urine Nitrite Negative (Negative) Urine Bilirubin Negative (Negative) Urine Urobilinogen Normal mg/dL (Negative) Urine Leukocyte Esterase Trace /uL (Negative) Urine RBC 4 /hpf (0 - 4) Urine WBC 19 /hpf (0 - 5) Urine Squamous Epithelial Cells Few /hpf (<5) Urine Bacteria None seen /hpf (None Seen) Urine Yeast (Budding) Many /hpf (None Seen) Urine Glucose Normal mg/dL (Normal) Assessment/Plan Assessment/Plan Acute pulmonary embolism History of PE many years ago after surgery Colon cancer status post recent surgery Hypertension Type 2 diabetes Hypothyroidism Chronic anemia, normocytic Plan 09/24/2024: Discontinue heparin drip and start Eliquis Discontinue IV fluids Resume the home medications Pain management with Percocet p.r.n. Physical therapy Full code Advance directives discussed for 18 minutes 09/25/2024: Eliquis Physical therapy Pain management Resume the home medications Add Ambien for sleep Plan discussed with: Patient My Orders Orders - MICHELINE EPREZ MD Procedure Category Date Status Time Oxycodone W/ Acet PHA 09/24/24 In Process 5/325mg Tab (Percocet 14:45 Oxycodone W/ Acet PHA 09/24/24 In Process 5/325mg Tab (Percocet 14:45 Apixaban (Eliquis) PHA 09/24/24 In Process 22:00 Pt Request For Service PT 09/24/24 Logged 14:39 Date of Service: Sep 25, 2024 Billing Provider: MICHELINE PEREZ MD Common Visit Codes: [id number] INP/OBS CARE(HIGH) MICHELINE PEREZ MD Sep 25, 2024 13:38
[2024-09-25] MEDS: VALSARTAN 80 MG TAB PO ONE (14:22)
[2024-09-25] MEDS: CARVEDILOL 12.5 MG TAB PO ONE (14:22)
[2024-09-25] MEDS: CYCLOBENZAPRINE HCL 10 MG TAB PO SCH (14:23)
[2024-09-25] MEDS: CARVEDILOL 12.5 MG TAB PO SCH (21:15)
[2024-09-26] VITALS (10 sets, daily range): BP systolic 115–153; BP diastolic 50–79; PULSE 58–88; RESP 16–18; TEMP 97.6–98.2; O2SAT 97–99
[2024-09-26] MEDS: SODIUM CHLORIDE 0.9% 1,000 ML IV SCH (03:41)
[2024-09-26] MEDS: VALSARTAN 80 MG TAB PO SCH (10:00)
--- NOTE | 2024-09-26 12:15 | DVHPN2 ---
Subjective Feels better but she was hypotensive and dizzy yesterday and therefore she was given more fluids Today she says she is feeling better Changes from previous H/P or p: Changes Eyes: No Pain, No Vision change, No Conjunctivae inflammation, No Eyelid inflammation, No Other, No Redness ENT: No Ear pain, No Ear discharge, No Nose pain, No Nose discharge, No Nose congestion, No Mouth pain, No Mouth swelling, No Throat pain, No Throat swelling, No Other Cardiovascular: No Chest Pain, No Palpitations, No Orthopnea, No Paroxysmal Noc. Dyspnea, No Edema, No Lt Headedness, No Other Respiratory: No Cough, No Dry, No Shortness of breath, No SOB with excertion, No Wheezing, No Hemoptysis, No Pleuritic Pain, No Sputum, No Other Gastrointestinal: No Nausea, No Vomiting; Abdominal Pain; No Diarrhea, No Constipation, No Melena, No Hematochezia, No Other Genitourinary: No Dysuria, No Frequency, No Incontinence, No Hematuria, No Retention, No Other Musculoskeletal: No other, No neck pain, No shoulder pain, No arm pain, No back pain, No hand pain, No leg pain, No foot pain Skin: No Rash, No Lesions, No Jaundice, No Bruising, No Other Objective Vitals Vital Signs Date Time Temp Pulse Resp B/P (MAP) Pulse Ox O2 Delivery O2 Flow Rate FiO2 09/26/24 10:00 68 131/64 09/26/24 10:00 97 Room Air 0.0 09/26/24 10:00 21 09/26/24 09:36 98.2 16 98.2 Intake/Output Intake and Output 09/26/24 07:00 Intake Total 200 ml Output Total 0 ml Balance 200 ml Intake Oral 200 ml Output Urine Total 0 ml # Voids 3 General Appearance: Alert, Oriented X3, Cooperative Lungs: Clear to auscultation, Normal air movement Cardiovascular: Regular rate, Normal S1, Normal S2 Abdomen: Normal bowel sounds, Soft, No tenderness Extremities: No edema Medications Current Medications Medications Dose Ordered Sig/Reji Route Start Time Stop Time Status Last Admin Dose Admin Levothyroxine Sodium 112 mcg QAM@0600 PO 09/24/24 06:00 09/26/24 05:36 112 MCG Amlodipine Besylate 5 mg DAILY PO 09/24/24 10:00 09/25/24 09:34 5 MG Hydralazine HCl 10 mg Q6HP PRN IV 09/23/24 23:15 09/24/24 23:45 10 MG Diagnostic Test (Pha) 1 strip ACHS 09/24/24 07:00 09/26/24 11:40 1 STRIP Insulin Human Regular HS SC 09/24/24 22:00 09/25/24 21:16 3 UNITS Insulin Human Regular AC SC 09/24/24 07:00 09/26/24 12:03 3 UNITS Dextrose 50 ml UD PRN IV 09/23/24 23:15 Ondansetron HCl 4 mg Q4HP PRN IV 09/23/24 23:15 Docusate Sodium 100 mg BIDPRN PRN PO 09/23/24 23:15 Acetaminophen 650 mg Q6HP PRN PO 09/23/24 23:15 Morphine Sulfate 2 mg Q4HPRN PRN IV 09/23/24 23:15 09/26/24 08:10 2 MG Nitroglycerin 0.4 mg Q5MINP PRN SL 09/23/24 23:15 Morphine Sulfate 2 mg Q30M PRN IV 09/23/24 23:15 Oxycodone/ Acetaminophen 1 tab Q6HP PRN PO 09/24/24 14:45 09/26/24 05:37 1 TAB Oxycodone/ Acetaminophen 2 tab Q6HP PRN PO 09/24/24 14:45 09/25/24 03:20 2 TAB Apixaban 10 mg BID PO 09/24/24 22:00 10/01/24 21:59 09/26/24 08:09 10 MG Albuterol 1.25 mg Q4HPRN PRN NEB 09/25/24 00:30 09/25/24 00:45 1.25 MG Valsartan 160 mg DAILY PO 09/26/24 10:00 Carvedilol 25 mg Q12HR PO 09/25/24 22:00 Zolpidem Tartrate 5 mg HSPRN PRN PO 09/25/24 13:45 Cyclobenzaprine HCl 5 mg TID PO 09/25/24 14:00 09/26/24 05:36 5 MG Sodium Chloride 1,000 ml @ 100 mls/hr Q10H IV 09/25/24 18:30 09/26/24 03:41 100 MLS/HR Laboratory Results Laboratory Tests 09/25/24 05:09 Urinalysis Test 09/23/24 00:00 Urine Color Light-yellow (Yellow) Urine Clarity Turbid (Clear) H Urine pH 6.0 (5.0-9.0) Urine Specific [place] 1.015 (1.001-1.035) Urine Protein Negative (Negative) Urine Ketones Negative (Negative) Urine Blood Negative /uL (Negative) Urine Nitrite Negative (Negative) Urine Bilirubin Negative (Negative) Urine Urobilinogen Normal mg/dL (Negative) Urine Leukocyte Esterase Trace /uL (Negative) Urine RBC 4 /hpf (0 - 4) Urine WBC 19 /hpf (0 - 5) Urine Squamous Epithelial Cells Few /hpf (<5) Urine Bacteria None seen /hpf (None Seen) Urine Yeast (Budding) Many /hpf (None Seen) Urine Glucose Normal mg/dL (Normal) Assessment/Plan Assessment/Plan Acute pulmonary embolism History of PE many years ago after surgery Colon cancer status post recent surgery Hypertension Type 2 diabetes Hypothyroidism Chronic anemia, normocytic Plan 09/24/2024: Discontinue heparin drip and start Eliquis Discontinue IV fluids Resume the home medications Pain management with Percocet p.r.n. Physical therapy Full code Advance directives discussed for 18 minutes 09/25/2024: Eliquis Physical therapy Pain management Resume the home medications Add Ambien for sleep 09/26/2024: Continue IV fluids Physical therapy is still pending Out of bed as tolerated Continue Eliquis Monitor closely Discharge planning for tomorrow Plan discussed with: Patient My Orders Orders - MICHELINE PEREZ MD Procedure Category Date Status Time Valsartan (Diovan) PHA 09/26/24 In Process 10:00 Carvedilol Tablet PHA 09/25/24 In Process (Coreg Tablet) 22:00 Zolpidem Tartrate PHA 09/25/24 In Process (Ambien) 13:45 Cyclobenzaprine PHA 09/25/24 In Process Tablet (Flexeril 14:00 Sodium Chloride 0.9% PHA 09/25/24 In Process 18:30 Date of Service: Sep 26, 2024 Billing Provider: MICHELINE PEREZ MD Common Visit Codes: [id number] INP/OBS CARE(HIGH) MICHELINE PEREZ MD Sep 26, 2024 12:15
[2024-09-26] MEDS: ZOLPIDEM TARTRATE 5 MG TAB PO PRN (21:29)
[2024-09-27] VITALS (7 sets, daily range): BP systolic 120–160; BP diastolic 54–88; PULSE 75–87; RESP 16–20; TEMP 97.4–98.4; O2SAT 98–100
[2024-09-27] MEDS ORDERED: APIX5TAB PO (13:04)
--- NOTE | 2024-09-27 13:07 | DVHDS2 ---
Discharge Summary Date of Admission Sep 23, 2024 at 23:13 Date of Discharge: Sep 27, 2024 Labs/Diagnostic Data: Laboratory Results Test 09/27/24 06:16 09/25/24 05:09 09/24/24 19:30 09/23/24 23:29 POC Glucose 164 mg/dl (70-106) White Blood Count 5.6 10^3/uL (4.4-10.8) Red Blood Count 3.82 10^6/uL (4.0-5.20) Hemoglobin 11.0 g/dL (12.2-16.2) Hematocrit 33.2 % (36.0-46.0) Mean Corpuscular Volume 86.9 fL (80.0-100.0) Mean Corpuscular Hemoglobin 28.7 pg (28.0-32.0) Mean Corpuscular Hemoglobin Concent 33.1 g/dL (32.0-36.0) Red Cell Distribution Width 14.3 % (11.8-14.3) Platelet Count 597 10^3/uL (140-450) Mean Platelet Volume 6.7 fL (6.9-10.8) Neutrophils (%) (Auto) 60.6 % (37.0-80.0) Lymphocytes (%) (Auto) 27.0 % (10.0-50.0) Monocytes (%) (Auto) 8.2 % (0.0-12.0) Eosinophils (%) (Auto) 3.4 % (0.0-7.0) Basophils (%) (Auto) 0.8 % (0.0-2.0) Neutrophils # (Auto) 3.4 10 ^3/uL (1.6-8.6) Lymphocytes # (Auto) 1.5 10 ^3/uL (0.4-5.4) Monocytes # (Auto) 0.5 10 ^3/uL (0-1.3) Eosinophils # (Auto) 0.2 10 ^3/uL (0-0.8) Basophils # (Auto) 0 10 ^3/uL (0-0.2) Nucleated Red Blood Cells 0.1 % Sodium Level 138 mmol/L (136-145) Potassium Level 3.8 mmol/L (3.5-5.1) Chloride Level 104 mmol/L (98-107) Carbon Dioxide Level 23 mmol/L (20-31) Anion Gap 11 (5-15) Blood Urea Nitrogen 9 mg/dL (9-23) Creatinine 0.82 mg/dL (0.550-1.02) Glomerular Filtration Rate Calc 80 mL/min (>90) BUN/Creatinine Ratio 11.0 (10.0-20.0) Serum Glucose 199 mg/dL (74-106) Calcium Level 10.4 mg/dL (8.7-10.4) Magnesium Level 1.7 mg/dL (1.6-2.6) Total Bilirubin 0.8 mg/dL (0.2-1.0) Aspartate Amino Transferase (AST) 29 U/L (13-40) Alanine Aminotransferase (ALT) 18 U/L (7-40) Alkaline Phosphatase 98 U/L (46-116) Total Protein 8.0 g/dL (5.7-8.2) Albumin 4.3 g/dL (3.2-4.8) Triglycerides Level 221 mg/dL (< 150) Cholesterol Level 223 mg/dL (< 200) LDL Cholesterol 118 mg/dL (< 100) HDL Cholesterol 50 mg/dL (40-59) Prothrombin Time 11.5 sec (9.3-11.8) Prothrombin Time INR 1.09 (0.9-1.15) Activated Partial Thromboplast Time 26.5 SEC (24.5-34.5) Thyroid Stimulating Hormone (TSH) 5.72 uIU/mL (0.55-4.78) Test 09/23/24 18:03 09/23/24 15:41 09/23/24 00:00 Troponin I High Sensitivity 7 ng/L (</=34) D-Dimer, Quantitative 20.23 mg/L FEU (0.0-0.49) B-Type Natriuretic Peptide 85.15 pg/mL (0-100) Urine Color Light-yellow (Yellow) Urine Clarity Turbid (Clear) Urine pH 6.0 (5.0-9.0) Urine Specific [place] 1.015 (1.001-1.035) Urine Protein Negative (Negative) Urine Ketones Negative (Negative) Urine Blood Negative /uL (Negative) Urine Nitrite Negative (Negative) Urine Bilirubin Negative (Negative) Urine Urobilinogen Normal mg/dL (Negative) Urine Leukocyte Esterase Trace /uL (Negative) Urine RBC 4 /hpf (0 - 4) Urine WBC 19 /hpf (0 - 5) Urine Squamous Epithelial Cells Few /hpf (<5) Urine Bacteria None seen /hpf (None Seen) Urine Yeast (Budding) Many /hpf (None Seen) Urine Glucose Normal mg/dL (Normal) Other Laboratory Tests 09/25/24 05:09 Brief Hx & Hospital Course: Final diagnoses: Acute pulmonary embolism History of PE many years ago after surgery Colon cancer status post recent surgery Hypertension Type 2 diabetes Hypothyroidism Chronic anemia, normocytic 64-year-old female with a history of colon cancer status post colon surgery 3 weeks before came with a chief complaint of dizziness and she was diagnosed with pulmonary embolism of the right lung She was started on anticoagulation and then she was switched to Eliquis She was given IV fluids due to hypotension Generalized weakness was treated with physical therapy Overall she did well and now she is able to ambulate and she is less symptomatic and therefore she will be discharged home She will be given Eliquis 5 mg twice a day Resume other home medications Follow up with her primary care physician as soon as possible Condition at Discharge: Stable Final Diagnosis/Problems List Acute pulmonary embolism History of PE many years ago after surgery Colon cancer status post recent surgery Hypertension Type 2 diabetes Hypothyroidism Chronic anemia, normocytic Discharge Disposition: Home SNF Discharge Will this Physician continue t: No Discharge Instruct/Medications Diet: Consistent carbohydrate, Cardiac 2g Na,low cholest Activity: No Restrictions, As Tolerated Follow Up/Referral: PCP TACHO Medications: Eliquis 5 mg bid Resume home meds Discharge Statement: "Patient was advised to return to the ER or call 911 if any headaches, dizziness, shortness of breath, chest pain, abdominal pain, bleeding, fevers, or worsening of medical condition. Patient was counseled about treatment plan, medications, possible side effects, patientverbalized understanding. All questions were answered to the best of my ability. This discharge took greater then 30 minutes in planning, reviewing documentation, counseling the patient, and discussing with other team members." ASSESSMENT ASSESSMENT Assessment Acute pulmonary embolism History of PE many years ago after surgery Colon cancer status post recent surgery Hypertension Type 2 diabetes Hypothyroidism Chronic anemia, normocytic Date of Service: Sep 27, 2024 Billing Provider: MICHELINE PEREZ MD Common Visit Codes: [id number] DISCH DAY >30min MICHELINE PEREZ MD Sep 27, 2024 13:07
== END 2024-09-27 15:57 | disposition home or self-care (01) | DRG 134 ==
LOC: EDBD 14:59 → ER 15:08 → TELE 23:13 → TELE-WESTW 23:21
PROVIDERS: ADMIT Nurse Practitioner Family; ATTEND Internal Medicine Geriatric Medicine
DX: I26.99 Other pulmonary embolism without acute cor pulmonale (principal); N17.0 Acute kidney failure with tubular necrosis; I27.21 Secondary pulmonary arterial hypertension; D64.9 Anemia, unspecified; I95.9 Hypotension, unspecified; E11.65 Type 2 diabetes mellitus with hyperglycemia; E03.9 Hypothyroidism, unspecified; I10 Essential (primary) hypertension; N39.0 Urinary tract infection, site not specified; G89.18 Other acute postprocedural pain; Z85.038 Personal history of other malignant neoplasm of large intestine; Z79.01 Long term (current) use of anticoagulants; Z79.899 Other long term (current) drug therapy; Z79.4 Long term (current) use of insulin
CPT/HCPCS: 36415; 71045; 71275; 80053; 80061; 81001; 82962; 83735; 83880; 84443; 84484; 85025; 85379; 85610; 85730; 87081; 93005; 94640; 97110; 97116; 97162; G0378; J1815

== ENCOUNTER 2025-09-05 10:40 | Inpatient (IN) | payer MEDICARE, MEDICAID ==
[~2025-09-05] VITALS: Ht 167.6 cm; Wt 86.2 kg
[~2025-09-05 10:40] MED LIST: AMLO1TAB22 PO; APIX2.5T PO; APIX5TAB PO; CARV25TA55 PO; CYCL0.058 EACHEYE; DORZ2SOL18 EACHEYE; EMPA1TAB3 PO; INSU1INJ19 SC; LEVO112C3 PO; METH-867 PO; OXYC325T14 PO; TIMO0.5S32 EACHEYE; TIZA4CAP PO; VALS160T82 PO; VALS1TAB58 PO
[2025-09-05 11:15] VITALS: PULSE 69; RESP 16; O2SAT 99
--- NOTE | 2025-09-05 11:21 | ED.PDOC ---
History of Present Illness HPI Comments 65 year old female with PMHx HTN, colon cancer presents to the ED with a chief complaint of wound check onset 2 days. Patient states she began experiencing small wound to mid abdomen/umbilical region, pain to surrounding area for the past 2 days. Patient went to urgent care, recommended to come to ED. Denies fever, chills, nausea, vomiting, diarrhea, headache, dizziness, dysuria, hematuria. No other symptoms or modifying factors present at this time. Chief Complaint: Wound Check Time Seen by MD: 11:05 Reviewed Notes: Medications, Allergies Allergies: Coded Allergies: NO KNOWN ALLERGIES (Unverified , 09/23/24) Home Meds Active Scripts Apixaban Base (ELIQUIS) 5 Mg Tab, 5 MG PO BID for 30 Days, #60 TAB 5 Refills Prov:MICHELINE PEREZ MD 09/27/24 Reported Medications Tizanidine Hydrochloride (Zanaflex) 4 Mg Cap, 1 CAP PO TID, #90 CAP 09/25/24 Carvedilol (Carvedilol) 25 Mg Tab, 25 MG PO Q12HR for 30 Days, MG 09/25/24 Levothyroxine Sodium (Levothyroxine Sodium) 112 Mcg Cap, 112 MCG PO DAILY, CAP 09/25/24 Amlodipine Besylate (Amlodipine Besylate) 5 Mg Tab, 5 MG PO DAILY for 30 Days, MG 09/25/24 Valsartan (Valsartan) 160 Mg Tab, 160 MG PO DAILY, TAB 09/25/24 Amlodipine Besylate (Amlodipine Besylate) 5 Mg Tab, 5 MG PO DAILY for 30 Days, MG 09/25/24 Information Source: Patient Mode of Arrival: Ambulatory Severity: Moderate Timing: Days Duration: Since onset Prehospital treatment: None Past Medical History 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, DM, 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 Family History Family History: Unknown Social History Smoker: Non-Smoker Alcohol: Denies ETOH Use Drugs: Denies Drug Use Lives In: Home Constitutional: denies: chills, diaphoresis, fatigue, fever, malaise, sweats, weakness, others EENTM: denies: blurred vision, double vision, ear bleeding, ear discharge, ear drainage, ear pain, ear ringing, eye pain, eye redness, hearing loss, mouth pain, mouth swelling, nasal discharge, nose bleeding, nose congestion, nose pain, photophobia, tearing, throat pain, throat swelling, voice changes, others Respiratory: denies: cough, hemoptysis, orthopnea, SOB at rest, shortness of breath, SOB with excertion, stridor, wheezing, others Cardiovascular: denies: chest pain, dizzy spells, diaphoresis, Dyspnea on exertion, edema, irregular heart beat, left arm pain, lightheadedness, palpitations, PND, syncope, others Gastrointestinal: reports: abdominal pain; denies: abdomen distended, blood streaked bowels, constipated, diarrhea, dysphagia, difficulty swallowing, hematemesis, melena, nausea, poor appetite, poor fluid intake, rectal bleeding, rectal pain, vomiting, others Genitourinary: denies: abnormal vagina bleeding, burning, dyspareunia, dysuria, flank pain, frequency, hematuria, incontinence, pain, , vagina discharge, urgency, others Neurological: denies: dizziness, fainting, headache, left sided numbness, left sided weakness, numbness, paresthesia, pre-existing deficit, right sided numbness, right sided weakness, seizure, speech problems, tingling, tremors, weakness, others Musculoskeletal: denies: back pain, gout, joint pain, joint swelling, muscle pain, muscle stiffness, neck pain, others Integumetry: reports: wounds (mid abdomen); denies: bruises, change in color, change in hair/nails, dryness, laceration, lesions, lumps, rash, others Allergic/Immunocompromised: denies: Difficulty Healing, Frequent Infections, Hives, Itching, others Hematologic/Lymphatic: denies: anemia, blood clots, easy bleeding, easy bruising, swollen glands, others Endocrine: denies: excessive hunger, excessive sweating, excessive thirst, excessive urination, flushing, intolerance to cold, intolerance to heat, unexplained weight gain, unexplained weight loss, others Psychiatric: denies: anxiety, bipolar disorder, depression, hopeless, panic disorder, schizophrenia, sleepless, suicidal, others All Other Systems: Reviewed and Negative Physical Exam General Appearance: Moderate Distress, Normal HEENT: Normal ENT Inspection, Pharynx Normal, TMs Normal Neck: Full Range of Motion, Non-Tender, Normal, Normal Inspection Respiratory: Chest Non-Tender, Lungs Clear, No Accessory Muscle Use, No Respiratory Distress, Normal Breath Sounds Cardiovascular: No Edema, No JVD, No Murmur, No Gallop, Normal Peripheral Pulses, Regular Rate/Rhythm Breast Exam: Deferred Gastrointestinal: No Organomegaly, Non Tender, No Pulsatile Mass, Normal Bowel Sounds, Soft, Other (What track just above the umbilicus) Genitalia: Deferred Pelvic: Deferred Rectal: Deferred Extremities: No calf tenderness, Normal capillary refill, Normal inspection, Normal range of motion, Non-tender, No pedal edema Musculoskeletal : Apperance: Normal 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 Was a procedure done?: No Differential Dx Considerations may include: Cellulitis X-Ray, Labs, Meds, VS Vital Signs Date Time Temp Pulse Resp B/P (MAP) Pulse Ox O2 Delivery O2 Flow Rate FiO2 09/05/25 10:42 97.5 64 16 81/51 99 97.5 Lab Test 09/05/25 11:38 Range/Units White Blood Count 5.0 4.4-10.8 10^3/uL Red Blood Count 3.79 L 4.0-5.20 10^6/uL Hemoglobin 11.0 L 12.2-16.2 g/dL Hematocrit 32.9 L 36.0-46.0 % Mean Corpuscular Volume 86.8 80.0-100.0 fL Mean Corpuscular Hemoglobin 28.9 28.0-32.0 pg Mean Corpuscular Hemoglobin Concent 33.3 32.0-36.0 g/dL Red Cell Distribution Width 13.6 11.8-14.3 % Platelet Count 309 140-450 10^3/uL Mean Platelet Volume 7.6 6.9-10.8 fL Neutrophils (%) (Auto) 40.7 37.0-80.0 % Lymphocytes (%) (Auto) 44.7 10.0-50.0 % Monocytes (%) (Auto) 7.5 0.0-12.0 % Eosinophils (%) (Auto) 6.1 0.0-7.0 % Basophils (%) (Auto) 1.0 0.0-2.0 % Neutrophils # (Auto) 2.0 1.6-8.6 10 ^3/uL Lymphocytes # (Auto) 2.2 0.4-5.4 10 ^3/uL Monocytes # (Auto) 0.4 0-1.3 10 ^3/uL Eosinophils # (Auto) 0.3 0-0.8 10 ^3/uL Basophils # (Auto) 0.1 0-0.2 10 ^3/uL Nucleated Red Blood Cells 0.1 % Sodium Level 140 136-145 mmol/L Potassium Level 4.2 3.5-5.1 mmol/L Chloride Level 106 98-107 mmol/L Carbon Dioxide Level 25 20-31 mmol/L Anion Gap 9 5-15 Blood Urea Nitrogen 39 H 9-23 mg/dL Creatinine 1.42 H 0.550-1.02 mg/dL Glomerular Filtration Rate Calc 41 >90 mL/min BUN/Creatinine Ratio 27.5 H 10.0-20.0 Serum Glucose 192 H 74-106 mg/dL Calcium Level 9.6 8.7-10.4 mg/dL Total Bilirubin 0.2 0.2-1.0 mg/dL Aspartate Amino Transferase (AST) 41 H 13-40 U/L Alanine Aminotransferase (ALT) 36 7-40 U/L Alkaline Phosphatase 73 46-116 U/L Troponin I High Sensitivity 28 </=34 ng/L Total Protein 7.4 5.7-8.2 g/dL Albumin 4.0 3.2-4.8 g/dL Current Medications Medications (Trade) Dose Ordered Sig/Reji Route Start Time Stop Time Status Last Admin Sodium Chloride 1,000 ml @ 1,000 mls/hr Q1H ONCE IV 09/05/25 11:30 09/05/25 12:29 DC 09/05/25 12:10 Patient alert. Complaining of having wound in the abdominal knee above the umbilicus. Vitals stable. Answering questions. Blood sugar elevated. Establish intravenous access. Was given fluids. WBC within normal limits. Was given Zosyn. Explained to the patient. Continue monitoring. Time of 1ST Reevaluation: 11:35 Reevaluation 1ST: Unchanged Patient Education/Counseling: Diagnosis, Treatment, Prognosis Family Education/Counseling: No Family Present SEPSIS Sepsis Screen Date sepsis recognized/suspect: Sep 05, 2025 Time Sepsis recognized/suspect: 1048 Recent Procedure: No On Antibiotic Therapy: No Respiratory Rate >20: No Heart Rate >90: No Temp<36 C (96.8 F) or >38.3 C: No SBP <90 or MAP <65 mmHG: Yes New Acute Mental Status Change: No Is the patient on CPAP, BIPAP,: No Physician Orders Chest Portable (09/05/25 11:27) Urinalysis (09/05/25 11:27) Sodium Chloride 0.9% (09/05/25 11:30) Ct Ab Pel Wo Con-No Oral Or Iv (09/05/25 11:27) Vital Signs Date Time Temp Pulse Resp B/P (MAP) Pulse Ox O2 Delivery O2 Flow Rate FiO2 09/05/25 10:42 97.5 64 16 81/51 99 97.5 Laboratory Tests Test 09/05/25 11:38 White Blood Count 5.0 10^3/uL (4.4-10.8) Medications Medications Dose Ordered Sig/Reji Route Start Time Stop Time Status Last Admin Dose Admin Sodium Chloride 1,000 ml @ 1,000 mls/hr Q1H ONCE IV 09/05/25 11:30 09/05/25 12:29 DC 09/05/25 12:10 Departure 1 Departure Time of Disposition: 12:52 Impression: Primary Impression: Uncontrolled diabetes mellitus Qualified Codes: E13.65 - Other specified diabetes mellitus with hyperglycemia Additional Impression: Cellulitis Qualified Codes: L03.90 - Cellulitis, unspecified Disposition: ADMITTED INPATIENT Admit to: Med Surg Condition: Guarded Critical Care Note Critical Care Time?: Yes (90 min-critical care time only) Stability Stability form required: No Heart Score Heart Score: Heart Score Response (Comments) Value History N/A 0 EKG N/A 0 Age N/A 0 Risk Factors N/A 0 Troponin N/A 0 Total 0 I personally scribed for SALVADOR PANCHAL MD ([email or web address]) on 09/05/25 at 11:21. Electronically submitted by Rani Reyes ([email or web address]). SALVADOR PANCHAL MD Sep 05, 2025 11:21
[2025-09-05 11:54] LABS: Hematocrit 32.9 % (36.0-46.0); Hemoglobin 11.0 g/dL (12.2-16.2); Mean Corpuscular Hemoglobin 28.9 pg (28.0-32.0); Mean Corpuscular Volume 86.8 fL (80.0-100.0); Nucleated Red Blood Cells % 0.1 %
[2025-09-05 12:09] LABS: Alanine Aminotransferase 36 U/L (7-40); Alkaline Phosphatase 73 U/L (46-116); Anion Gap 9 (5-15); BUN/Creatinine Ratio 27.5 (10.0-20.0); Calcium 9.6 mg/dL (8.7-10.4); Carbon Dioxide 25 mmol/L (20-31); Chloride 106 mmol/L (98-107); Potassium 4.2 mmol/L (3.5-5.1); Sodium 140 mmol/L (136-145); Total Protein 7.4 g/dL (5.7-8.2)
[2025-09-05 12:10] LABS: Albumin 4.0 g/dL (3.2-4.8)
[2025-09-05] MEDS: SODIUM CHLORIDE 0.9% 1,000 ML IV ONE ×2 (12:10→14:07)
[2025-09-05 12:14] LABS: Bilirubin, Total 0.2 mg/dL (0.2-1.0); Blood Urea Nitrogen 39 mg/dL (9-23); Glucose 192 mg/dL (74-106)
--- NOTE | 2025-09-05 13:10 | DVH ---
CLINICAL HISTORY: wound TECHNIQUE: CT of the abdomen and pelvis was performed without IV contrast. This exam was performed according to our departmental dose optimization program. Up-to-date CT equipment and radiation dose reduction techniques are utilized as appropriate. CTDI 14.7 DLP 732 COMPARISON: None. FINDINGS: Abdomen/Pelvis: There has been right hemicolectomy with reanastomosis. At the umbilicus just deep to the anterior abdominal wall musculature, there is a 5.5 x 2.9 x 4.0 cm collection containing fluid and gas. There is diastases recti. The spleen, pancreas, adrenal glands, liver, kidneys, and bladder are grossly unremarkable. The gallbladder and uterus are absent. The abdominal aorta is normal in course and caliber. There are mild aortic atherosclerotic calcifications. There is no free intraperitoneal air or fluid. There is no enlarged abdominal pelvic lymph node. Other: The imaged lower thorax demonstrates coronary artery calcifications. No acute osseous abnormality is evident. Impression: 5.5 x 2.9 x 4.0 cm collection containing fluid and gas at the umbilicus just deep to the anterior abdominal wall musculature. Collection likely represent an abscess with a bowel fistula in the differential. Right hemicolectomy. Hysterectomy. Cholecystectomy. Coronary artery calcifications.
--- NOTE | 2025-09-05 13:19 | DVH ---
CHEST RADIOGRAPH Indication: sob Technique: XY CHEST PORTABLE Comparison: None FINDINGS: The cardiac silhouette is unremarkable. The lungs demonstrate no pulmonary airspace consolidation. The pulmonary vasculature is prominent. Small bilateral pleural effusions. There is no pneumothorax. IMPRESSION: Pulmonary vascular congestion and small bilateral pleural effusions.
[2025-09-05] MEDS: PIPERACILLIN-TAZOB 3.375GM 100 ML IV ONE (14:03)
[2025-09-05] MEDS ORDERED: VANCOMYCIN PER PHARMACY 0 MG IV SCH (14:15)
[2025-09-05] MEDS ORDERED: POLYETHYLENE GLYCOL 17 GM PWDR PO PRN (14:30)
[2025-09-05 14:40] LABS: INR 1.02 (0.9-1.15); Partial Thromboplastin Time 25.9 SEC (24.5-34.5); Prothrombin Time 10.8 sec (9.3-11.8)
[2025-09-05] MEDS: CLINDAMYCIN 900MG IV 50 ML IV ONE (15:53)
[2025-09-05] MEDS: ONDANSETRON HCL 4 MG/2 ML VIAL IV PRN (15:55)
[2025-09-05] MEDS: PANTOPRAZOLE 40 MG/10 ML VIAL INJ IV ONE (15:58)
[2025-09-05] MEDS: MORPHINE SULFATE 4 MG/ML SYR/VIAL IV PRN (15:58)
[2025-09-05] MEDS: VANCOMYCIN 1.25GM/250ML 250 ML IV ONE (17:02)
--- NOTE | 2025-09-05 18:37 | DVHHPRES ---
History of Present Illness Resident Creating Document: LASHAY LYNCH RESIDENT History of Present Illness Patient is a 65-year-old female with a medical history of colon cancer status post hemicolectomy with a colocolonic anastomosis, PE, hypothyroidism, hypertension presented to the ED with a chief complaint of abdominal pain which has been going on since the last 2 weeks. Patient reported that she noticed bump near her belly button about 3-4 weeks ago which was initially painless in the start to have pain which was getting worse and in the last 2 days she has been noticing small amount of drainage from the wound following which she came to the ER for further evaluation. Patient reported of chills, weakness but denied any fever at home. Medical history: As per HPI Surgical history: Hemicolectomy, hysterectomy, cholecystectomy Social history: Patient lives with the her daughter and denies smoking, alcohol, drug use Home medications: Eliquis 5 mg b.i.d., amlodipine 5 mg, carvedilol 25 b.i.d., valsartan 160 mg b.i.d., levothyroxine 112 mcg, insulin Review of Systems Review of Systems Reports of generalized weakness and having chills Abdominal pain around the umbilicus with a small amount of drainage Denies chest pain, shortness of breath Denies nausea, vomiting, diarrhea or constipation Reports of urinary incontinence Allergies: Coded Allergies: NO KNOWN ALLERGIES (Unverified , 09/23/24) Medications Current Medications Medications Dose Ordered Sig/Reji Route Start Time Stop Time Status Last Admin Dose Admin Piperacillin Sod/ Tazobactam Sod 100 ml @ 25 mls/hr Q8HR IV 09/05/25 22:00 Vancomycin HCl 0 ml @ 0 mls/hr PER PHARMACY IV 09/05/25 14:15 Clindamycin Phosphate 50 ml @ 50 mls/hr Q8HR IV 09/05/25 22:00 Ondansetron HCl 4 mg Q6HPRN PRN IV 09/05/25 14:15 09/05/25 15:55 4 MG Morphine Sulfate 2 mg Q6HPRN PRN IV 09/05/25 14:45 09/05/25 15:58 2 MG Acetaminophen/ Hydrocodone Bitart 1 tab Q6HPRN PRN PO 09/05/25 14:15 Acetaminophen 650 mg Q6HP PRN PO 09/05/25 14:15 Polyethylene Glycol 17 gm DAILYPRN PRN PO 09/05/25 14:30 Sennosides 8.6 mg HS PO 09/05/25 22:00 Pantoprazole Sodium 40 mg DAILY IV 09/06/25 10:00 Enoxaparin Sodium 80 mg Q12HR SC 09/05/25 22:00 Exam Vital Signs Vital Signs Date Time Temp Pulse Resp B/P (MAP) Pulse Ox O2 Delivery O2 Flow Rate FiO2 09/05/25 17:03 65 16 156/66 09/05/25 11:15 99 Room Air* 0 21 09/05/25 10:42 97.5 97.5 Exam Skin - Patients skin is warm and dry HEENT - normocephalic, atraumatic, moist mucous membranes, no pallor or icterus Neck - full ROM, no LAD, no JVD Pulmonary - B/L clear breath sounds without any rales or wheezing cardiovascular - regular S1,S2 heard, no added sounds, no murmurs heard. GI - area of induration around the umbilicus about 7-8 cm in diameter with draining tract clear to purulent drainage. Bowel sounds normoactive. No other areas of tenderness Neurological - Patient is A/O X 4 . Bilateral upper extremity strength 5/5, bilateral lower extremity strength 5/5, no facial droop, normal speech, no trem or, no sensory deficiets. Labs/Xrays Labs Test 09/05/25 14:28 09/05/25 11:38 Range/Units Lactic Acid Level 1.3 0.4-2.0 mmol/L White Blood Count 5.0 4.4-10.8 10^3/uL Red Blood Count 3.79 L 4.0-5.20 10^6/uL Hemoglobin 11.0 L 12.2-16.2 g/dL Hematocrit 32.9 L 36.0-46.0 % Mean Corpuscular Volume 86.8 80.0-100.0 fL Mean Corpuscular Hemoglobin 28.9 28.0-32.0 pg Mean Corpuscular Hemoglobin Concent 33.3 32.0-36.0 g/dL Red Cell Distribution Width 13.6 11.8-14.3 % Platelet Count 309 140-450 10^3/uL Mean Platelet Volume 7.6 6.9-10.8 fL Neutrophils (%) (Auto) 40.7 37.0-80.0 % Lymphocytes (%) (Auto) 44.7 10.0-50.0 % Monocytes (%) (Auto) 7.5 0.0-12.0 % Eosinophils (%) (Auto) 6.1 0.0-7.0 % Basophils (%) (Auto) 1.0 0.0-2.0 % Neutrophils # (Auto) 2.0 1.6-8.6 10 ^3/uL Lymphocytes # (Auto) 2.2 0.4-5.4 10 ^3/uL Monocytes # (Auto) 0.4 0-1.3 10 ^3/uL Eosinophils # (Auto) 0.3 0-0.8 10 ^3/uL Basophils # (Auto) 0.1 0-0.2 10 ^3/uL Nucleated Red Blood Cells 0.1 % Prothrombin Time 10.8 9.3-11.8 sec Prothrombin Time INR 1.02 0.9-1.15 Activated Partial Thromboplast Time 25.9 24.5-34.5 SEC Sodium Level 140 136-145 mmol/L Potassium Level 4.2 3.5-5.1 mmol/L Chloride Level 106 98-107 mmol/L Carbon Dioxide Level 25 20-31 mmol/L Anion Gap 9 5-15 Blood Urea Nitrogen 39 H 9-23 mg/dL Creatinine 1.42 H 0.550-1.02 mg/dL Glomerular Filtration Rate Calc 41 >90 mL/min BUN/Creatinine Ratio 27.5 H 10.0-20.0 Serum Glucose 192 H 74-106 mg/dL Calcium Level 9.6 8.7-10.4 mg/dL Total Bilirubin 0.2 0.2-1.0 mg/dL Aspartate Amino Transferase (AST) 41 H 13-40 U/L Alanine Aminotransferase (ALT) 36 7-40 U/L Alkaline Phosphatase 73 46-116 U/L Troponin I High Sensitivity 28 </=34 ng/L Total Protein 7.4 5.7-8.2 g/dL Albumin 4.0 3.2-4.8 g/dL Thyroid Stimulating Hormone (TSH) 3.09 0.55-4.78 uIU/mL SEPSIS Sepsis Screen Date sepsis recognized/suspect: Sep 05, 2025 Time Sepsis recognized/suspect: 1114 Recent Procedure: No On Antibiotic Therapy: Yes Respiratory Rate >20: No Heart Rate >90: No Temp<36 C (96.8 F) or >38.3 C: No SBP <90 or MAP <65 mmHG: No New Acute Mental Status Change: No Is the patient on CPAP, BIPAP,: No Physician Orders Chest Portable (09/05/25 11:27) Urinalysis (09/05/25 11:27) Ct Ab Pel Wo Con-No Oral Or Iv (09/05/25 11:27) Admit (09/05/25 14:09) Oxygen By Nasal Cannula (09/05/25 14:09) Stat Ekg For Chest Pain (09/05/25 14:09) Notify Md Of Changes From [facility] (09/05/25 14:09) Physical Therapist Clinic Director For 24 Hours (09/05/25 14:09) Emergency Dysrhythmia Protocol (09/05/25 14:09) Piperacillin-Tazob 3.375gm (Zosyn 3.375g (09/05/25 22:00) Vancomycin Per Pharmacy (09/05/25 14:15) Clindamycin 900mg Iv (Cleocin Iv) (09/05/25 22:00) Ondansetron Hcl (Zofran) (09/05/25 14:15) Hydrocodone-Acet 5/325mg Tab (Hart 5/32 (09/05/25 14:15) Acetaminophen Tablet (Tylenol Tablet) (09/05/25 14:15) Blood Culture (09/05/25 14:09) * Wound Consult (09/05/25 ) Wound Culture W/ Gs (09/05/25 14:09) * Surgical Consult (09/05/25 ) Complete Blood Count (09/06/25 04:00) Basic Metabolic Panel (09/06/25 04:00) Polyethylene Glycol 17g Powder (Miralax (09/05/25 14:30) Senna Pod Tablet (Senokot Tablet) (09/05/25 22:00) Pantoprazole (Protonix) (09/06/25 10:00) Enoxaparin Sodium (Lovenox) (09/05/25 22:00) Full Liq Diet (09/05/25 Dinner) Morphine Sulfate Injection (09/05/25 14:45) Creatinine (09/06/25 04:00) Vancomycin,Random (09/06/25 04:00) Vancomycin Per Pharmacy Protoc (09/05/25 14:40) Vital Signs Date Time Temp Pulse Resp B/P (MAP) Pulse Ox O2 Delivery O2 Flow Rate FiO2 09/05/25 17:03 65 16 156/66 09/05/25 15:58 63 16 160/67 09/05/25 11:15 69 16 99 Room Air* 0 21 09/05/25 10:42 97.5 64 16 81/51 99 97.5 Laboratory Tests Test 09/05/25 11:38 09/05/25 14:28 White Blood Count 5.0 10^3/uL (4.4-10.8) Lactic Acid Level 1.3 mmol/L (0.4-2.0) Medications Medications Dose Ordered Sig/Reji Route Start Time Stop Time Status Last Admin Dose Admin Clindamycin Phosphate 50 ml @ 50 mls/hr ONCE ONCE IV 09/05/25 14:15 09/05/25 15:14 DC 09/05/25 15:53 50 MLS/HR Morphine Sulfate 2 mg Q6HPRN PRN IV 09/05/25 14:45 09/05/25 15:58 2 MG Ondansetron HCl 4 mg Q6HPRN PRN IV 09/05/25 14:15 09/05/25 15:55 4 MG Pantoprazole Sodium 40 mg ONCE ONCE IV 09/05/25 14:30 09/05/25 14:31 DC 09/05/25 15:58 40 MG Piperacillin Sod/ Tazobactam Sod 100 ml @ 100 mls/hr ONCE ONCE IV 09/05/25 13:00 09/05/25 13:59 DC 09/05/25 14:03 100 MLS/HR Sodium Chloride 1,000 ml @ 150 mls/hr Q6H40M ONCE IV 09/05/25 11:30 09/05/25 18:09 DC 09/05/25 14:07 150 MLS/HR Sodium Chloride 1,000 ml @ 1,000 mls/hr Q1H ONCE IV 09/05/25 11:30 09/05/25 12:29 DC 09/05/25 12:10 1,000 MLS/HR Vancomycin HCl 250 ml @ 200 mls/hr ONCE ONCE IV 09/05/25 14:45 09/05/25 15:59 DC 09/05/25 17:02 200 MLS/HR Assessment/Plan Assessment/Plan Sepsis likely due to abdominal wall abscess Abdominal wall abscess H/o colon cancer status post hemicolectomy ( reported to be in remission ) h/o cholecystectomy with keloids at surgical sites Constipation, likely chronic - CT abdomen pelvis without contrast showed 5.5 X2.9 X 4 cm collection cont aining fluid and gas at the umbilicus - IV fluids - IV antibiotics Zosyn plus vancomycin plus clindamycin - wound culture pending - surgical consult - MiraLax and senna as needed for constipation TARA on CKD likely prerenal due to VMN - IV fluids - monitor electrolytes and kidney function Type 2 diabetes mellitus with hyperglycemia, uncontrolled - HbA1c pending - moderate insulin sliding scale Hypertensive heart disease History of pulmonary embolism diagnosed about a year ago History of hypothyroidism - blood pressure medications held as the patient is septic - held Eliquis, started on enoxaparin therapeutic dose - continued levothyroxine 112 mcg PUD prophylaxis: Protonix DVT prophylaxis: On therapeutic Lovenox Goals of care discussed with the patient for over 21 minutes. Full code Time spent: 41 minutes Plan discussed with Dr. Manning Plan discussed with: Patient, Daughter, Other (VETO cantor) My Orders Orders - LASHAY LYNCH RESIDENT Procedure Category Date Status Time Admit ADMIT 09/05/25 Transmitted 14:09 Oxygen By Nasal RT 09/05/25 Transmitted Cannula 14:09 Stat Ekg For Chest RAMY 09/05/25 Transmitted Pain 14:09 Notify Of Changes RAMY 09/05/25 In Process From [facility] 14:09 Physical Therapist Clinic Director For RAMY 09/05/25 In Process 24 Hours 14:09 Emergency Dysrhythmia RAMY 09/05/25 In Process Protocol 14:09 Piperacillin-Tazob PHA 09/05/25 In Process 3.375gm (Zosyn 3.375g 22:00 Vancomycin Per PHA 09/05/25 In Process Pharmacy 14:15 Clindamycin 900mg Iv PHA 09/05/25 In Process (Cleocin Iv) 22:00 Ondansetron Hcl PHA 09/05/25 In Process (Zofran) 14:15 Hydrocodone-Acet PHA 09/05/25 In Process 5/325mg Tab (Hart 14:15 Acetaminophen Tablet PHA 09/05/25 In Process (Tylenol Tablet) 14:15 Blood Culture SABRINA 09/05/25 In Process 14:09 * Wound Consult CONS 09/05/25 Transmitted Wound Culture W/ Gs SABRINA 09/05/25 In Process 14:09 * Surgical Consult CONS 09/05/25 Transmitted Complete Blood Count LAB 09/06/25 Verified 04:00 Basic Metabolic Panel LAB 09/06/25 Verified 04:00 Polyethylene Glycol PHA 09/05/25 In Process 17g Powder (Miralax 14:30 Senna Pod Tablet PHA 09/05/25 In Process (Senokot Tablet) 22:00 Pantoprazole PHA 09/06/25 In Process (Protonix) 10:00 Enoxaparin Sodium PHA 09/05/25 In Process (Lovenox) 22:00 Full Liq Diet DIET 09/05/25 Transmitted Dinner Morphine Sulfate PHA 09/05/25 In Process Injection 14:45 Creatinine LAB 09/06/25 Verified 04:00 Vancomycin,Random LAB 09/06/25 Verified 04:00 Vancomycin Per RAMY 09/05/25 In Process Pharmacy Protoc 14:40 Date of Service: Sep 05, 2025 Billing Provider: GISSELLE MANNING MD Common Visit Codes: [id number] INP/OBS CARE (HIGH) Secondary Visit Codes: [id number] CARE PLAN 30 MINUTES LASHAY LYNCH RESIDENT Sep 05, 2025 18:37
[2025-09-05] MEDS ORDERED: DEXTROSE (50%) 50ML SYRG IV PRN (19:00)
[2025-09-05 19:30] VITALS: PULSE 94; RESP 12; O2SAT 97
[2025-09-05 19:58] LABS: Urine Protein, UAD Negative (Negative)
[2025-09-05] MEDS: HYDROcodone-ACET 5/325MG TAB PO PRN (20:16)
[2025-09-05] MEDS: LABETALOL HCL 20 MG/4 ML VL IV ONE (21:09)
[2025-09-05] MEDS ORDERED: PATIENTS OWN MEDICATION (Carvedilol 25 MG) PO SCH (22:00)
[2025-09-05] MEDS: ACCU-CHEK COMFORT CURVE STRIP VI SCH (22:14)
[2025-09-05] MEDS: CLINDAMYCIN 900MG IV 50 ML IV SCH (22:23)
[2025-09-05] MEDS: ENOXAPARIN SOD 80 MG/0.8ML SYRINGE SC SCH (22:26)
[2025-09-05] MEDS: InsuLIN REG 1unit/0.01ml Soln (100units/ml) SC SCH (22:26)
[2025-09-05] MEDS: LOSARTAN POTASSIUM 25 MG TAB PO ONE (22:39)
[2025-09-05] MEDS: SENNA 8.6 MG TAB PO SCH (22:39)
[2025-09-05 23:36] VITALS: BP 174/92; PULSE 92; RESP 16; RESP 76; TEMP 97.7; O2SAT 96
[2025-09-05 23:59] VITALS: PULSE 93
[2025-09-06] VITALS (8 sets, daily range): BP systolic 86–167; BP diastolic 56–83; PULSE 59–95; RESP 18–19; TEMP 97.6–98.9; O2SAT 97–99
[2025-09-06] MEDS: PIPERACILLIN-TAZOB 3.375GM 100 ML IV SCH (00:45)
[2025-09-06] MEDS: LEVOTHYROXINE SODIUM 112 MCG TAB PO SCH (05:10)
[2025-09-06] MEDS: InsuLIN REG 1unit/0.01ml Soln (100units/ml) SC SCH (06:19)
[2025-09-06 06:28] LABS: Hematocrit 38.6 % (36.0-46.0); Hemoglobin 12.5 g/dL (12.2-16.2); Mean Corpuscular Hemoglobin 28.3 pg (28.0-32.0); Mean Corpuscular Volume 87.3 fL (80.0-100.0); Nucleated Red Blood Cells % 0.0 %
[2025-09-06 06:55] LABS: Anion Gap 12 (5-15); Calcium 9.9 mg/dL (8.7-10.4); Carbon Dioxide 23 mmol/L (20-31); Potassium 3.8 mmol/L (3.5-5.1); Sodium 144 mmol/L (136-145)
[2025-09-06 06:59] LABS: Chloride 109 mmol/L (98-107)
[2025-09-06 07:02] LABS: BUN/Creatinine Ratio 17.7 (10.0-20.0); Blood Urea Nitrogen 17 mg/dL (9-23); Glucose 186 mg/dL (74-106)
[2025-09-06] MEDS ORDERED: POM (09:19)
--- NOTE | 2025-09-06 09:24 | DVHPNRES ---
Progress Note Date Seen: Sep 06, 2025 Resident Creating Document: DALE BOWDEN RESIDENT Medical Necessity Reason Pt with a Central, PICC or Fol: No Subjective Review of Systems Patient is a 65-year-old female with a medical history of colon cancer status post hemicolectomy with a colocolonic anastomosis, PE, insulin-dependent diabetes mellitus, Hypertension, fibromyalgia, glaucoma, hypothyroidism, hypertension presented to the ED with a chief complaint of abdominal pain which has been going on since the this FEBRUARY. Patient reported that she noticed hard mass near her belly button about 4 weeks ago which was initially painless but progressively became painful. Patient states that the mass "popped open" 1 week ago, Initially with whitish yellowish discharge which progressively became brownish in color for which her daughter forced her to go to the hospital. Patient states that she had a knot in her stomach since July 2025 which progressively worsened. Patient reported of chills, weakness but denied any fever at home. Patient reports getting a colonoscopy on July 2025. Medical history: insulin-dependent diabetes mellitus, Hypertension, fibromyalgia, glaucoma, Hypothyroidism PE Surgical history: Hemicolectomy 1 year ago, hysterectomy, cholecystectomy Social history: denies smoking, alcohol, drug use lives with: her daughter Home medications: Eliquis 5 mg b.i.d., amlodipine 5 mg, carvedilol 25 b.i.d., valsartan 160 mg b.i.d., levothyroxine 112 mcg, insulin Constitutional: Denies weight loss, has chills. HEENT: Denies changes in vision and hearing. Respiratory: Denies shortness of breath and cough Cardiovascular: Denies chest discomfort or palpitations GI: abdominal pain, discomfort : Denies dysuria and urinary frequency. Musculoskeletal: Denies myalgias and joint pain Skin: Denies rash and pruritus. Neurological: Denies dizziness, headache, vision or hearing problems 09/06/2025: Patient seen at bedside. Patient complains of 10/10 abdominal pain at site of drainage. Patient states she has chills. Patient chest pain, shortness of breath, nausea, vomiting, fever. surgery consulted. Blood culture showed Gram-positive rods. Patient on IV antibiotics. Objective vital signs Vital Sign Date Time Temp Pulse Resp B/P (MAP) Pulse Ox O2 Delivery O2 Flow Rate FiO2 09/06/25 08:52 98.9 89 19 153/80 (104) 97 98.9 09/05/25 23:36 Room Air* 0 21 Total Intake and Output 09/05/25 09/05/25 09/06/25 15:00 23:00 07:00 Intake Total 1000 ml 1150 ml 300 ml Balance 1000 ml 1150 ml 300 ml medications Current Medications Medications Dose Ordered Sig/Reji Route Start Time Stop Time Status Last Admin Dose Admin Piperacillin Sod/ Tazobactam Sod 100 ml @ 25 mls/hr Q8HR IV 09/05/25 22:00 09/06/25 05:10 25 MLS/HR Vancomycin HCl 0 ml @ 0 mls/hr PER PHARMACY IV 09/05/25 14:15 Clindamycin Phosphate 50 ml @ 50 mls/hr Q8HR IV 09/05/25 22:00 09/06/25 05:09 50 MLS/HR Ondansetron HCl 4 mg Q6HPRN PRN IV 09/05/25 14:15 09/05/25 15:55 4 MG Morphine Sulfate 2 mg Q6HPRN PRN IV 09/05/25 14:45 09/06/25 05:11 2 MG Acetaminophen/ Hydrocodone Bitart 1 tab Q6HPRN PRN PO 09/05/25 14:15 09/06/25 04:05 1 TAB Acetaminophen 650 mg Q6HP PRN PO 09/05/25 14:15 Polyethylene Glycol 17 gm DAILYPRN PRN PO 09/05/25 14:30 Sennosides 8.6 mg HS PO 09/05/25 22:00 09/05/25 22:39 8.6 MG Pantoprazole Sodium 40 mg DAILY IV 09/06/25 10:00 Enoxaparin Sodium 80 mg Q12HR SC 09/05/25 22:00 09/05/25 22:26 80 MG Diagnostic Test (Pha) 1 strip ACHS 09/05/25 22:00 09/06/25 06:58 1 STRIP Insulin Human Regular HS SC 09/05/25 22:00 09/05/25 22:26 2 UNITS Insulin Human Regular AC SC 09/06/25 07:00 09/06/25 06:19 3 UNITS Dextrose 50 ml UD PRN IV 09/05/25 19:00 Amlodipine Besylate 5 mg DAILY PO 09/06/25 10:00 Levothyroxine Sodium 112 mcg QAM@0600 PO 09/06/25 06:00 09/06/25 05:10 112 MCG Losartan Potassium 100 mg DAILY PO 09/06/25 10:00 Carvedilol 12.5 mg Q12HR PO 09/06/25 10:00 Examination General: Patient alert and oriented in person, place and time. Patient following commands. HEENT: Normocephalic, atraumatic, moist mucous membranes Respiratory/pulmonary: Clear lungs bilaterally, vesicular murmurs present in almost all lung kaur, no associated crackles or wheezes. Cardiovascular: Normal heart sounds S1 and S2 with no associated murmurs Abdomen: severe tenderness on palpation, superior umbilical induration draining clear to purulent discharge from belly button, Extremities: There is no peripheral edema present at the lower extremities. Peripheral Pulses: 3+ Radial (R). 3+ Radial (L). 3+ Dorsalis pedis (R). 3+ Dorsalis pedis(L) Skin: multiple keloids on surgical sites. Neurological: Intact cranial nerves with no focal neurologic deficits laboratory and microbiology Laboratory Tests 09/06/25 05:43 Test 09/06/25 05:43 Range/Units Serum Glucose 186 H 74-106 mg/dL Microbiology Date/Time Source Procedure Growth Status 09/05/25 14:36 Blood Blood Culture - Preliminary Resulted Problem List/Assessment/Plan Problem List/Assessment/Plan Sepsis likely due to abdominal wall abscess Abdominal wall abscess H/o colon cancer status post hemicolectomy ( reported to be in remission ) h/o cholecystectomy with keloids at surgical sites Slow Transit constipation Bilateral pleural effusion - CT abdomen pelvis without contrast showed 5.5 X2.9 X 4 cm collection containing fluid and gas at the umbilicus - IV fluids - IV antibiotics Zosyn, clindamycin - blood culture showed Gram-negative rods - wound culture showed no growth. - surgical consult - I and D of abscess to be done tomorrow - MiraLax and senna as needed for constipation - chest x-ray showed Pulmonary vascular congestion and small bilateral pleural effusions. TARA on CKD - IV fluids - monitor electrolytes and kidney function Type 2 diabetes mellitus with hyperglycemia, uncontrolled - HbA1c 8.9 - moderate insulin sliding scale Hypertensive heart disease History of pulmonary embolism - blood pressure medications held as the patient is septic - held Eliquis, started on enoxaparin therapeutic dose History of hypothyroidism - continued levothyroxine 112 mcg history of fibromyalgia history of glaucoma PPI prophylaxis: Protonix DVT prophylaxis: held lovenox for procedure Goals of care addressed with the patient for more than 27 minutes: Full code status Case discussed with Dr. Manning, patient and nurse Plan discussed with: Patient Date of Service: Sep 06, 2025 Billing Provider: GISSELLE MANNING MD Common Visit Codes: [id number] INP/OBS CARE(HIGH) DALE BOWDEN RESIDENT Sep 06, 2025 09:24 GISSELLE MANNING MD Sep 06, 2025 23:21
[2025-09-06] MEDS: CARVEDILOL 12.5 MG TAB PO SCH (10:33)
[2025-09-06] MEDS: PANTOPRAZOLE 40 MG/10 ML VIAL INJ IV SCH (10:33)
[2025-09-06] MEDS: LOSARTAN POTASSIUM 50 MG TAB PO SCH (10:34)
--- NOTE | 2025-09-06 10:54 | DVHINCON2 ---
Date of service: Sep 06, 2025 History of Present Illness 65-year-old female complaining of over 1 week history of painful periumbilical swelling and drainage. Patient denies any fevers or chills. Past Medical History Hypertension. Diabetes. Hypothyroidism. History of PE x2 on Eliquis. Fibromyalgia. Past Surgical History Partial colectomy last year for colon cancer stage I. Cholecystectomy. Umbilical hernia repair with mesh. Family History: FH: breast cancer G8 MOTHER, FHx: heart disease G8 FATHER, Family History Noncontributory Social History Denies alcohol, tobacco, IV drug use Allergies: Coded Allergies: NO KNOWN ALLERGIES (Unverified , 09/23/24) Home Meds Active Scripts Apixaban Base (ELIQUIS) 5 Mg Tab, 5 MG PO BID for 30 Days, #60 TAB 5 Refills Prov:MICHELINE PEREZ MD 09/27/24 Reported Medications Patients Own Medication (PATIENTS OWN MEDICATION) . PTS OWN MED-OBTAIN FROM PT AND SEND TO RX DRUG: oxycodone/acetaminophen FREQ:QID RX# EXP: DATE DISP: TECH: RPH: 09/06/25 Tizanidine Hydrochloride (Zanaflex) 4 Mg Cap, 6 MG PO TID, #90 CAP 09/25/24 Carvedilol (Carvedilol) 25 Mg Tab, 25 MG PO Q12HR for 30 Days, MG 09/25/24 Levothyroxine Sodium (Levothyroxine Sodium) 112 Mcg Cap, 112 MCG PO DAILY, CAP 09/25/24 Amlodipine Besylate (Amlodipine Besylate) 5 Mg Tab, 5 MG PO DAILY for 30 Days, MG 09/25/24 Valsartan (Valsartan) 160 Mg Tab, 160 MG PO DAILY, TAB 09/25/24 Amlodipine Besylate (Amlodipine Besylate) 5 Mg Tab, 5 MG PO DAILY for 30 Days, MG 09/25/24 Current Medications Current Medications Medications (Trade) Dose Ordered Sig/Reji Route PRN Reason Start Time Stop Time Status Last Admin Piperacillin Sod/ Tazobactam Sod 100 ml @ 25 mls/hr Q8HR IV 09/05/25 22:00 09/06/25 05:10 Vancomycin HCl 0 ml @ 0 mls/hr PER PHARMACY IV 09/05/25 14:15 Clindamycin Phosphate 50 ml @ 50 mls/hr Q8HR IV 09/05/25 22:00 09/06/25 05:09 Ondansetron HCl (Zofran) 4 mg Q6HPRN PRN IV NAUSEA / VOMITING 09/05/25 14:15 09/05/25 15:55 Morphine Sulfate 2 mg Q6HPRN PRN IV SEVERE PAIN (7-10 PAIN SCALE) 09/05/25 14:45 09/06/25 05:11 Acetaminophen/ Hydrocodone Bitart ([place] 5/325MG Tab) 1 tab Q6HPRN PRN PO MODERATE PAIN (4-6 PAIN SCALE) 09/05/25 14:15 09/06/25 10:36 Acetaminophen (Tylenol Tablet) 650 mg Q6HP PRN PO PAIN SCALE 1-3 OR TEMP>100.4 09/05/25 14:15 Polyethylene Glycol (Miralax 17GM Powder) 17 gm DAILYPRN PRN PO FOR CONSTIPATION 09/05/25 14:30 Sennosides (Senokot Tablet) 8.6 mg HS PO 09/05/25 22:00 09/05/25 22:39 Pantoprazole Sodium (Protonix) 40 mg DAILY IV 09/06/25 10:00 09/06/25 10:33 Enoxaparin Sodium (Lovenox) 80 mg Q12HR SC 09/05/25 22:00 09/05/25 22:26 Diagnostic Test (Pha) (Accu-Chek Comfort Curve T) 1 strip ACHS 09/05/25 22:00 09/06/25 06:58 Insulin Human Regular (InsuLIN R) HS SC 09/05/25 22:00 09/05/25 22:26 Insulin Human Regular (InsuLIN R) AC SC 09/06/25 07:00 09/06/25 06:19 Dextrose 50 ml UD PRN IV Blood Sugar LESS THAN 60 09/05/25 19:00 Amlodipine Besylate (Norvasc Tablet) 5 mg DAILY PO 09/06/25 10:00 09/06/25 10:35 Patient Own Medication 25 mg Q12HR PO 09/05/25 22:00 09/05/25 20:50 DC Levothyroxine Sodium (Synthroid Tablet) 112 mcg QAM@0600 PO 09/06/25 06:00 09/06/25 05:10 Losartan Potassium (Cozaar Tablet) 100 mg DAILY PO 09/06/25 10:00 09/06/25 10:34 Carvedilol (Coreg Tablet) 12.5 mg Q12HR PO 09/06/25 10:00 09/06/25 10:33 Vancomycin HCl 250 ml @ 250 mls/hr Q12H IV 09/06/25 11:00 UNV Vital Signs Vital Signs Date Time Temp Pulse Resp B/P (MAP) Pulse Ox O2 Delivery O2 Flow Rate FiO2 09/06/25 10:35 162/78 09/06/25 10:33 89 09/06/25 08:52 98.9 19 97 98.9 09/06/25 08:00 Room Air* 0 21 Physical Exam GEN: Age-appropriate female in no acute distress. Alert. HEENT: Normocephalic atraumatic. Moist mucous membranes. Anicteric sclerae. CV: RRR Respiratory: CTAB ABD: There is induration around the umbilicus with purulent drainage from the previous incisional scar. Area is tender to palpation. CT of the abdomen and pelvis: 5.5 x 2.9 x 4.0 cm collection containing fluid and gas at the umbilicus just deep to the anterior abdominal wall musculature likely representing an abscess. Labs/Diagnostic Data Labs Test 09/06/25 05:43 09/06/25 05:20 09/05/25 19:35 09/05/25 14:28 Range/Units White Blood Count 4.8 4.4-10.8 10^3/uL Red Blood Count 4.42 4.0-5.20 10^6/uL Hemoglobin 12.5 12.2-16.2 g/dL Hematocrit 38.6 # 36.0-46.0 % Mean Corpuscular Volume 87.3 80.0-100.0 fL Mean Corpuscular Hemoglobin 28.3 28.0-32.0 pg Mean Corpuscular Hemoglobin Concent 32.4 32.0-36.0 g/dL Red Cell Distribution Width 13.8 11.8-14.3 % Platelet Count 337 140-450 10^3/uL Mean Platelet Volume 7.4 6.9-10.8 fL Neutrophils (%) (Auto) 52.5 37.0-80.0 % Lymphocytes (%) (Auto) 34.2 10.0-50.0 % Monocytes (%) (Auto) 7.6 0.0-12.0 % Eosinophils (%) (Auto) 4.5 0.0-7.0 % Basophils (%) (Auto) 1.2 0.0-2.0 % Neutrophils # (Auto) 2.5 1.6-8.6 10 ^3/uL Lymphocytes # (Auto) 1.7 0.4-5.4 10 ^3/uL Monocytes # (Auto) 0.4 0-1.3 10 ^3/uL Eosinophils # (Auto) 0.2 0-0.8 10 ^3/uL Basophils # (Auto) 0.1 0-0.2 10 ^3/uL Nucleated Red Blood Cells 0.0 % Sodium Level 144 136-145 mmol/L Potassium Level 3.8 3.5-5.1 mmol/L Chloride Level 109 H 98-107 mmol/L Carbon Dioxide Level 23 20-31 mmol/L Anion Gap 12 5-15 Blood Urea Nitrogen 17 # 9-23 mg/dL Creatinine 0.96 # 0.550-1.02 mg/dL Glomerular Filtration Rate Calc 66 >90 mL/min BUN/Creatinine Ratio 17.7 10.0-20.0 Serum Glucose 186 H 74-106 mg/dL Calcium Level 9.9 8.7-10.4 mg/dL Random Vancomycin Level 9.8 5-10 ug/mL POC Glucose 200 H 70-106 mg/dl Urine Color Colorless Yellow Urine Clarity Clear Clear Urine pH 5.5 5.0-9.0 Urine Specific [place] 1.011 1.001-1.035 Urine Protein Negative Negative Urine Ketones Negative Negative Urine Blood Negative Negative /uL Urine Nitrite Negative Negative Urine Bilirubin Negative Negative Urine Urobilinogen Normal Negative mg/dL Urine Leukocyte Esterase Negative Negative /uL Urine RBC None seen 0 - 4 /hpf Urine Microscopic WBC < 1 0-5 /HPF Urine Squamous Epithelial Cells Few <5 /hpf Urine Bacteria None seen None Seen /hpf Urine Glucose Normal Normal mg/dL Lactic Acid Level 1.3 0.4-2.0 mmol/L Test 09/05/25 11:38 Range/Units Prothrombin Time 10.8 9.3-11.8 sec Prothrombin Time INR 1.02 0.9-1.15 Activated Partial Thromboplast Time 25.9 24.5-34.5 SEC Total Bilirubin 0.2 0.2-1.0 mg/dL Aspartate Amino Transferase (AST) 41 H 13-40 U/L Alanine Aminotransferase (ALT) 36 7-40 U/L Alkaline Phosphatase 73 46-116 U/L Troponin I High Sensitivity 28 </=34 ng/L Total Protein 7.4 5.7-8.2 g/dL Albumin 4.0 3.2-4.8 g/dL Thyroid Stimulating Hormone (TSH) 3.09 0.55-4.78 uIU/mL Microbiology Date/Time Source Procedure Growth Status 09/05/25 14:36 Blood Blood Culture - Preliminary Resulted 09/05/25 14:06 Abdomen Gram Stain - Final Resulted 09/05/25 14:06 Abdomen Wound Culture - Preliminary No growth Resulted Assessment 1. Abdominal wall abscess Plan/Recommendation 1. Incision and drainage of abdominal wall abscess. Informed consent: The surgery and its risks including but not limited to infection, bleeding requiring possible blood transfusion with the risk of hepatitis or HIV infection, possible perioperative [place], stroke or DVT/PE were explained to the patient and her daughters. All questions were answered to their satisfaction. The patient expressed verbal understanding and wished to proceed with the surgery. Plan discussed with: Patient KINA ESPAÑA MD Sep 06, 2025 10:54
[2025-09-06] MEDS: VANCOMYCIN 1GM/250ML KIT 250 ML IV SCH (11:18)
[2025-09-06] MEDS: SODIUM CHLORIDE 0.9% 500 ML IV ONE (21:15)
[2025-09-06] MEDS: ACETAMINOPHEN 325 MG TAB PO PRN (21:54)
[2025-09-07] VITALS (8 sets, daily range): BP systolic 99–159; BP diastolic 43–81; PULSE 61–91; RESP 11–18; TEMP 98.1–98.8; O2SAT 97–100
[2025-09-07 06:43] LABS: Hematocrit 33.5 % (36.0-46.0); Hemoglobin 11.1 g/dL (12.2-16.2); Mean Corpuscular Hemoglobin 28.7 pg (28.0-32.0); Mean Corpuscular Volume 86.4 fL (80.0-100.0); Nucleated Red Blood Cells % 0.1 %
[2025-09-07 06:59] LABS: Alanine Aminotransferase 31 U/L (7-40); Albumin 4.0 g/dL (3.2-4.8); Alkaline Phosphatase 64 U/L (46-116); Anion Gap 13 (5-15); BUN/Creatinine Ratio 12.3 (10.0-20.0); Bilirubin, Total 0.7 mg/dL (0.2-1.0); Blood Urea Nitrogen 15 mg/dL (9-23); Calcium 9.4 mg/dL (8.7-10.4); Carbon Dioxide 22 mmol/L (20-31); Chloride 107 mmol/L (98-107); Sodium 142 mmol/L (136-145); Total Protein 7.3 g/dL (5.7-8.2)
[2025-09-07 07:03] LABS: Glucose 124 mg/dL (74-106); Potassium 3.4 mmol/L (3.5-5.1)
[2025-09-07] MEDS ORDERED: MEPERIDINE HCL (25 MG/ML) 1ML VIAL ONE (09:16)
[2025-09-07] MEDS ORDERED: MIDAZOLAM HCL 2MG/2ML 2ml VIAL (1mg/ml) ONE (09:18)
[2025-09-07] MEDS ORDERED: fentaNYL CITRATE 100 MCG/2 ML VL ONE (09:18)
[2025-09-07] MEDS ORDERED: ETOMIDATE (2MG/ML) 20ML VIAL IV ONE (09:34)
[2025-09-07] MEDS: LIDOCAINE W/ EPINEPHRINE 1% 20ML VIAL ONE (09:47)
[2025-09-07] MEDS ORDERED: KETOROLAC TROMETH 30 MG/ML 1ML VIAL ONE (09:53)
--- NOTE | 2025-09-07 10:02 | DVHOP2 ---
Operative Report - 2 Report Details Date: 09/07/25 Preop Diagnosis: 1. Abdominal wall abscess Postop Diagnosis: 1. Abdominal wall abscess with infected mesh Surgeon: Kina Ramos MD Air Chief Marshal: None Anesthesiologist: Dr. Oneill Anesthesia: General, Local Drains: 15 Vincentian Pierre drain Consent: The surgery and its risks including but not limited to infection, bleeding requiring possible blood transfusion with the risk of hepatitis or HIV infection, open wound requiring local wound care, possible perioperative [place], stroke, DVT or PE were explained to the patient and her daughters. All questions were answered to their satisfaction. The patient expressed verbal understanding and wished to proceed with the surgery. Complications: None Estimated Blood Loss: 10 mL Fluids: 700 mL Name of Procedure Performed Incision and drainage of abdominal wall abscess with removal of infected mesh Procedure Details Procedure Details: After induction of general anesthesia, patient's abdomen was prepped and draped in standard surgical fashion. Patient had a 0.5 cm skin opening above the umbilicus in the midline at the previous incisional site. The area was then injected with 13 mL of 1% lidocaine with epinephrine for local anesthesia. This was gently explored and found that there was an abscess cavity extending into the deeper tissue. Incision was made in this area to fully open up the area. Abscess cavity was swabbed for Gram stain and culture. There was an infected mesh that was within the abscess cavity and this was completely removed. The area was then well irrigated with diluted Betadine irrigation. A 15 Vincentian Pierre drain was placed into the abscess cavity and brought out through a separate stab incision right lateral to the opening and secured to the skin using 2-0 nylon sutures. Overlying soft tissue was then closed using interrupted #1 Vicryl sutures. The skin was left open and packed with half-inch iodoform packing strips. Surgical site was cleaned and dried dressings were applied. Sponge, needle, instrument count at the end of the case were reported to be correct by the nursing staff. The patient tolerated procedure well. At the time of dictation she is being awakened from general anesthesia. Specimen: Gram stain and culture of the abscess cavity and infected mesh Condition Stable Disposition Still a Patient KINA RAMOS MD Sep 07, 2025 10:01
[2025-09-07] MEDS ORDERED: ONDANSETRON HCL 4 MG/2 ML VIAL ONE (10:07)
[2025-09-07] MEDS ORDERED: hydrALAZINE HCL 20 MG/ML VL IV PRN (10:15)
[2025-09-07] MEDS ORDERED: ONDANSETRON HCL 4 MG/2 ML VIAL IV PRN (10:15)
[2025-09-07] MEDS ORDERED: HYDROmorphone HCL 2 MG/ML VL/or syr IV PRN (10:15)
[2025-09-07] MEDS ORDERED: MIDAZOLAM HCL 2MG/2ML 2ml VIAL (1mg/ml) IV PRN (10:15)
[2025-09-07] MEDS ORDERED: MORPHINE SULFATE 4 MG/ML SYR/VIAL IV PRN (10:15)
[2025-09-07] MEDS ORDERED: fentaNYL CITRATE 100 MCG/2 ML VL IV PRN (10:15)
[2025-09-07] MEDS: POTASSIUM EFFERVESENT TAB 25 MEQ PO ONE (11:07)
--- NOTE | 2025-09-07 15:21 | DVHPNRES ---
Progress Note Date Seen: Sep 07, 2025 Resident Creating Document: DALE BOWDEN RESIDENT Medical Necessity Reason Pt with a Central, PICC or Fol: No Subjective Review of Systems Patient is a 65-year-old female with a medical history of colon cancer status post hemicolectomy with a colocolonic anastomosis, PE, insulin-dependent diabetes mellitus, Hypertension, fibromyalgia, glaucoma, hypothyroidism, hypertension presented to the ED with a chief complaint of abdominal pain which has been going on since the this FEBRUARY. Patient reported that she noticed hard mass near her belly button about 4 weeks ago which was initially painless but progressively became painful. Patient states that the mass "popped open" 1 week ago, Initially with whitish yellowish discharge which progressively became brownish in color for which her daughter forced her to go to the hospital. Patient states that she had a knot in her stomach since July 2025 which progressively worsened. Patient reported of chills, weakness but denied any fever at home. Patient reports getting a colonoscopy on July 2025. Medical history: insulin-dependent diabetes mellitus, Hypertension, fibromyalgia, glaucoma, Hypothyroidism PE Surgical history: Hemicolectomy 1 year ago, hysterectomy, cholecystectomy Social history: denies smoking, alcohol, drug use lives with: her daughter Home medications: Eliquis 5 mg b.i.d., amlodipine 5 mg, carvedilol 25 b.i.d., valsartan 160 mg b.i.d., levothyroxine 112 mcg, insulin Constitutional: Denies weight loss, has chills. HEENT: Denies changes in vision and hearing. Respiratory: Denies shortness of breath and cough Cardiovascular: Denies chest discomfort or palpitations GI: abdominal pain, discomfort : Denies dysuria and urinary frequency. Musculoskeletal: Denies myalgias and joint pain Skin: Denies rash and pruritus. Neurological: Denies dizziness, headache, vision or hearing problems 09/06/2025: Patient seen at bedside. Patient complains of 10/10 abdominal pain at site of drainage. Patient states she has chills. Patient chest pain, shortness of breath, nausea, vomiting, fever. surgery consulted. Blood culture showed Gram-positive rods. Patient on IV antibiotics. 09/07/25: Patient seen at bedside. Patient completed with I&D of abscess done with infected mesh. Patient is started on full liquid diet advance as tolerated. Objective vital signs Vital Sign Date Time Temp Pulse Resp B/P (MAP) Pulse Ox O2 Delivery O2 Flow Rate FiO2 09/07/25 12:44 98.5 70 18 130/67 (88) 99 98.5 09/07/25 10:10 Mask 6.0 100 Total Intake and Output 09/06/25 09/06/25 09/07/25 15:00 23:00 07:00 Intake Total 350 ml 785 ml 700 ml Balance 350 ml 785 ml 700 ml medications Current Medications Medications Dose Ordered Sig/Reji Route Start Time Stop Time Status Last Admin Dose Admin Piperacillin Sod/ Tazobactam Sod 100 ml @ 25 mls/hr Q8HR IV 09/05/25 22:00 09/07/25 11:06 25 MLS/HR Clindamycin Phosphate 50 ml @ 50 mls/hr Q8HR IV 09/05/25 22:00 09/07/25 15:10 50 MLS/HR Ondansetron HCl 4 mg Q6HPRN PRN IV 09/05/25 14:15 09/05/25 15:55 4 MG Morphine Sulfate 2 mg Q6HPRN PRN IV 09/05/25 14:45 09/06/25 14:14 2 MG Acetaminophen/ Hydrocodone Bitart 1 tab Q6HPRN PRN PO 09/05/25 14:15 09/07/25 11:09 1 TAB Acetaminophen 650 mg Q6HP PRN PO 09/05/25 14:15 09/06/25 21:54 650 MG Polyethylene Glycol 17 gm DAILYPRN PRN PO 09/05/25 14:30 Sennosides 8.6 mg HS PO 09/05/25 22:00 09/06/25 21:54 8.6 MG Pantoprazole Sodium 40 mg DAILY IV 09/06/25 10:00 09/07/25 11:06 40 MG Enoxaparin Sodium 80 mg Q12HR SC 09/05/25 22:00 09/06/25 10:56 80 MG Diagnostic Test (Pha) 1 strip ACHS 09/05/25 22:00 09/07/25 12:12 1 STRIP Insulin Human Regular HS SC 09/05/25 22:00 09/06/25 22:00 4 UNITS Insulin Human Regular AC SC 09/06/25 07:00 09/07/25 13:35 9 UNITS Dextrose 50 ml UD PRN IV 09/05/25 19:00 Amlodipine Besylate 5 mg DAILY PO 09/06/25 10:00 09/07/25 11:06 5 MG Levothyroxine Sodium 112 mcg QAM@0600 PO 09/06/25 06:00 09/07/25 06:33 112 MCG Losartan Potassium 100 mg DAILY PO 09/06/25 10:00 09/07/25 08:35 100 MG Carvedilol 12.5 mg Q12HR PO 09/06/25 10:00 09/07/25 08:35 12.5 MG Patient Own Medication 1 tab QID PRN PO 09/07/25 14:45 UNV Patient Own Medication 6 mg TID PO 09/07/25 22:00 UNV Timolol Maleate 1 drop BID EACHEYE 09/07/25 22:00 UNV Patient Own Medication 1 tab DAILY PO 09/08/25 10:00 UNV Examination General: Patient alert and oriented in person, place and time. Patient following commands. HEENT: Normocephalic, atraumatic, moist mucous membranes Respiratory/pulmonary: Clear lungs bilaterally, vesicular murmurs present in almost all lung kaur, no associated crackles or wheezes. Cardiovascular: Normal heart sounds S1 and S2 with no associated murmurs Abdomen: severe tenderness on palpation, superior umbilical induration draining clear to purulent discharge from belly button, Extremities: There is no peripheral edema present at the lower extremities. Peripheral Pulses: 3+ Radial (R). 3+ Radial (L). 3+ Dorsalis pedis (R). 3+ Dorsalis pedis(L) Skin: multiple keloids on surgical sites. Neurological: Intact cranial nerves with no focal neurologic deficits laboratory and microbiology Laboratory Tests 09/07/25 05:39 Test 09/07/25 05:39 Range/Units Serum Glucose 124 H 74-106 mg/dL Microbiology Date/Time Source Procedure Growth Status 09/05/25 14:36 Blood Blood Culture - Preliminary Resulted 09/05/25 14:06 Abdomen Gram Stain - Final Resulted 09/05/25 14:06 Abdomen Wound Culture - Preliminary No growth Resulted Problem List/Assessment/Plan Problem List/Assessment/Plan Sepsis likely due to abdominal wall abscess Abdominal wall abscess H/o colon cancer status post hemicolectomy ( reported to be in remission ) h/o cholecystectomy with keloids at surgical sites Slow Transit constipation Bilateral pleural effusion - CT abdomen pelvis without contrast showed 5.5 X2.9 X 4 cm collection containing fluid and gas at the umbilicus - IV fluids - IV antibiotics Zosyn, clindamycin - blood culture showed Gram-negative rods - wound culture showed no growth. - surgical consult - I and D of abscess done - MiraLax and senna as needed for constipation - chest x-ray showed Pulmonary vascular congestion and small bilateral pleural effusions. - Started on full liquid diet advance as tolerated. TARA on CKD - IV fluids - monitor electrolytes and kidney function Type 2 diabetes mellitus with hyperglycemia, uncontrolled - HbA1c 8.9 - moderate insulin sliding scale Hypertensive heart disease History of pulmonary embolism - blood pressure medications held as the patient is septic - held Eliquis, started on enoxaparin therapeutic dose History of hypothyroidism - continued levothyroxine 112 mcg history of fibromyalgia history of glaucoma PPI prophylaxis: Protonix DVT prophylaxis: held lovenox for procedure Goals of care addressed with the patient for more than 27 minutes: Full code status Case discussed with Dr. Manning, patient and nurse Plan discussed with: Patient, Daughter My Orders My Orders Orders - DALE BOWDEN RESIDENT Procedure Category Date Status Time Change Dressing RAMY 09/06/25 In Process 10:55 * Dietary Consult CONS 09/06/25 Transmitted 15:49 Apply Z-Guard RAMY 09/06/25 In Process 10:55 (Nf) Oxycodone W/ PHA 09/07/25 Logged Acetaminophen (Apap/Ox 14:45 (Nf) Tizanidine PHA 09/07/25 Logged Hydrochloride 22:00 Timolol 0.5% Opth PHA 09/07/25 Logged Soln (Timoptic 0.5%) 22:00 (Nf) Empagliflozin PHA 09/08/25 Logged (Jardiance) 10:00 Dietary Evaluation Review Comments: Nutrition Recommendation: 1) Carloz 1 pk BID 2) Ensure High Protein 240ml BID if PO intake <50% 3) Advance diet as medically feasible 4) Monitor NPO status, lab values, weight trend, and I/O Expected Outcomes/Goals: Intake to meet >75% estimated needs Lab values to improve FU 2-3 days Date of Service: Sep 07, 2025 Billing Provider: GISSELLE MANNING MD Common Visit Codes: [id number] INP/OBS CARE(HIGH) DALE BOWDEN Sep 07, 2025 15:21 GISSELLE MANNING MD Sep 08, 2025 18:25
[2025-09-07] MEDS: TIMOLOL MAL 0.5% OPTH(EYE) SOL 5ML EACHEYE SCH (21:44)
[2025-09-08] VITALS (8 sets, daily range): BP systolic 97–125; BP diastolic 52–70; PULSE 52–72; RESP 16–20; TEMP 97.8–98.1; O2SAT 98–100
[2025-09-08 07:03] LABS: Hematocrit 31.4 % (36.0-46.0); Hemoglobin 10.4 g/dL (12.2-16.2); Mean Corpuscular Hemoglobin 28.7 pg (28.0-32.0); Mean Corpuscular Volume 86.4 fL (80.0-100.0); Nucleated Red Blood Cells % 0.0 %
[2025-09-08 07:42] LABS: Chloride 107 mmol/L (98-107); Potassium 4.2 mmol/L (3.5-5.1); Sodium 140 mmol/L (136-145)
[2025-09-08 07:43] LABS: Anion Gap 10 (5-15); Carbon Dioxide 23 mmol/L (20-31)
[2025-09-08 07:44] LABS: Calcium 9.6 mg/dL (8.7-10.4)
[2025-09-08 07:48] LABS: BUN/Creatinine Ratio 15.5 (10.0-20.0); Blood Urea Nitrogen 20 mg/dL (9-23)
[2025-09-08 07:49] LABS: Glucose 140 mg/dL (74-106)
--- NOTE | 2025-09-08 10:34 | DVHPN2 ---
Progress Note - Dictate Date Seen: Sep 08, 2025 Medical Necessity Reason Pt with a Central, PICC or Fol: No Subjective E: no major events o/n. c/o incisional pain. vital signs Vital Sign Date Time Temp Pulse Resp B/P (MAP) Pulse Ox O2 Delivery O2 Flow Rate FiO2 09/08/25 09:00 97.8 52 16 109/60 (76) 99 97.8 09/07/25 20:00 Room Air* 0 21 Total Intake and Output 09/07/25 09/07/25 09/08/25 15:00 23:00 07:00 Intake Total 530 ml 575 ml 630 ml Output Total 10 ml Balance 520 ml 575 ml 630 ml medications Current Medications Medications Dose Ordered Sig/Reji Route Start Time Stop Time Status Last Admin Dose Admin Piperacillin Sod/ Tazobactam Sod 100 ml @ 25 mls/hr Q8HR IV 09/05/25 22:00 09/08/25 05:28 25 MLS/HR Clindamycin Phosphate 50 ml @ 50 mls/hr Q8HR IV 09/05/25 22:00 09/08/25 05:28 50 MLS/HR Ondansetron HCl 4 mg Q6HPRN PRN IV 09/05/25 14:15 09/05/25 15:55 4 MG Morphine Sulfate 2 mg Q6HPRN PRN IV 09/05/25 14:45 09/06/25 14:14 2 MG Acetaminophen/ Hydrocodone Bitart 1 tab Q6HPRN PRN PO 09/05/25 14:15 09/08/25 05:47 1 TAB Acetaminophen 650 mg Q6HP PRN PO 09/05/25 14:15 09/06/25 21:54 650 MG Polyethylene Glycol 17 gm DAILYPRN PRN PO 09/05/25 14:30 Sennosides 8.6 mg HS PO 09/05/25 22:00 09/07/25 21:39 8.6 MG Pantoprazole Sodium 40 mg DAILY IV 09/06/25 10:00 09/07/25 11:06 40 MG Enoxaparin Sodium 80 mg Q12HR SC 09/05/25 22:00 09/07/25 21:39 80 MG Diagnostic Test (Pha) 1 strip ACHS 09/05/25 22:00 09/08/25 06:27 1 STRIP Insulin Human Regular HS SC 09/05/25 22:00 09/07/25 22:00 6 UNITS Insulin Human Regular AC SC 09/06/25 07:00 09/08/25 06:34 3 UNITS Dextrose 50 ml UD PRN IV 09/05/25 19:00 Amlodipine Besylate 5 mg DAILY PO 09/06/25 10:00 09/07/25 11:06 5 MG Levothyroxine Sodium 112 mcg QAM@0600 PO 09/06/25 06:00 09/08/25 05:28 112 MCG Losartan Potassium 100 mg DAILY PO 09/06/25 10:00 09/07/25 08:35 100 MG Carvedilol 12.5 mg Q12HR PO 09/06/25 10:00 09/07/25 21:40 12.5 MG Patient Own Medication 1 tab QID PRN PO 09/07/25 14:45 Patient Own Medication 6 mg TID PO 09/07/25 22:00 Timolol Maleate 1 drop BID EACHEYE 09/07/25 22:00 09/07/25 21:44 1 DROP Empaglifozin 25 mg DAILY PO 09/08/25 10:00 objective GEN: NAD ABD: drain with min serosang drainage. open wound packed. no purulent drainage. some serosang drainage from open wound. laboratory and microbiology Laboratory Tests 09/08/25 05:52 Test 09/08/25 05:52 Range/Units Serum Glucose 140 H 74-106 mg/dL Assessment/Plan A: 1. POD #1 s/p incision and drainage of abdominal wall abscess and removal of infected mesh P: 1. local wound care with BID packing 2. stable from surgery POV for DC with oral abx for next week. 3. f/u in clinic next week. call [phone] for f/u appt. Dietary Evaluation Review Comments: Nutrition Recommendation: 1) Carloz 1 pk BID 2) Ensure High Protein 240ml BID if PO intake <50% 3) Advance diet as medically feasible 4) Monitor NPO status, lab values, weight trend, and I/O Expected Outcomes/Goals: Intake to meet >75% estimated needs Lab values to improve FU 2-3 days Plan discussed with: Patient KINA ESPAÑA MD Sep 08, 2025 10:34
[2025-09-08] MEDS: EMPAGLIFLOZIN 10 MG TAB PO SCH (11:07)
[2025-09-08] MEDS: OXYCODONE W/ ACETAMINOPHEN 5/325MG TABLET PO PRN (14:02)
[2025-09-08] MEDS: SUCCINYLCHOLINE CHLORIDE 20 MG/ML 10ML VIAL IV ONE (14:05)
--- NOTE | 2025-09-08 16:02 | DVHPNRES ---
Progress Note Date Seen: Sep 08, 2025 Resident Creating Document: DALE BOWDEN RESIDENT Medical Necessity Reason Pt with a Central, PICC or Fol: No Subjective Review of Systems Patient is a 65-year-old female with a medical history of colon cancer status post hemicolectomy with a colocolonic anastomosis, PE, insulin-dependent diabetes mellitus, Hypertension, fibromyalgia, glaucoma, hypothyroidism, hypertension presented to the ED with a chief complaint of abdominal pain which has been going on since the this FEBRUARY. Patient reported that she noticed hard mass near her belly button about 4 weeks ago which was initially painless but progressively became painful. Patient states that the mass "popped open" 1 week ago, Initially with whitish yellowish discharge which progressively became brownish in color for which her daughter forced her to go to the hospital. Patient states that she had a knot in her stomach since July 2025 which progressively worsened. Patient reported of chills, weakness but denied any fever at home. Patient reports getting a colonoscopy on July 2025. Medical history: insulin-dependent diabetes mellitus, Hypertension, fibromyalgia, glaucoma, Hypothyroidism PE Surgical history: Hemicolectomy 1 year ago, hysterectomy, cholecystectomy Social history: denies smoking, alcohol, drug use lives with: her daughter Home medications: Eliquis 5 mg b.i.d., amlodipine 5 mg, carvedilol 25 b.i.d., valsartan 160 mg b.i.d., levothyroxine 112 mcg, insulin 09/06/2025: Patient seen at bedside. Patient complains of 10/10 abdominal pain at site of drainage. Patient states she has chills. Patient chest pain, shortness of breath, nausea, vomiting, fever. surgery consulted. Blood culture showed Gram-positive rods. Patient on IV antibiotics. 09/07/25: Patient seen at bedside. Patient completed with I&D of abscess done with infected mesh. Patient is started on full liquid diet advance as tolerated. 09/08/2025: Patient seen at bedside. Patient complains of 8/10 abdominal pain at site of surgery. Patient denies any fever, chills, nausea, vomiting, diarrhea. Patient did have 1 loose bowel movement today. Repeat blood cultures were ordered. PT eval to be done. Incentive spirometry to be started. Discontinued clindamycin, Zosyn and started ceftriaxone. Objective vital signs Vital Sign Date Time Temp Pulse Resp B/P (MAP) Pulse Ox O2 Delivery O2 Flow Rate FiO2 09/08/25 13:00 97.8 65 18 125/65 (85) 99 97.8 09/07/25 20:00 Room Air* 0 21 Total Intake and Output 09/07/25 09/07/25 09/08/25 15:00 23:00 07:00 Intake Total 530 ml 575 ml 630 ml Output Total 10 ml Balance 520 ml 575 ml 630 ml medications Current Medications Medications Dose Ordered Sig/Reji Route Start Time Stop Time Status Last Admin Dose Admin Ondansetron HCl 4 mg Q6HPRN PRN IV 09/05/25 14:15 09/05/25 15:55 4 MG Morphine Sulfate 2 mg Q6HPRN PRN IV 09/05/25 14:45 09/06/25 14:14 2 MG Acetaminophen 650 mg Q6HP PRN PO 09/05/25 14:15 09/06/25 21:54 650 MG Polyethylene Glycol 17 gm DAILYPRN PRN PO 09/05/25 14:30 Sennosides 8.6 mg HS PO 09/05/25 22:00 09/07/25 21:39 8.6 MG Pantoprazole Sodium 40 mg DAILY IV 09/06/25 10:00 09/08/25 11:05 40 MG Enoxaparin Sodium 80 mg Q12HR SC 09/05/25 22:00 09/07/25 21:39 80 MG Diagnostic Test (Pha) 1 strip ACHS 09/05/25 22:00 09/08/25 11:30 1 STRIP Insulin Human Regular HS SC 09/05/25 22:00 09/07/25 22:00 6 UNITS Insulin Human Regular AC SC 09/06/25 07:00 09/08/25 12:35 2 UNITS Dextrose 50 ml UD PRN IV 09/05/25 19:00 Amlodipine Besylate 5 mg DAILY PO 09/06/25 10:00 09/08/25 11:04 5 MG Levothyroxine Sodium 112 mcg QAM@0600 PO 09/06/25 06:00 09/08/25 05:28 112 MCG Losartan Potassium 100 mg DAILY PO 09/06/25 10:00 09/08/25 11:03 100 MG Carvedilol 12.5 mg Q12HR PO 09/06/25 10:00 09/08/25 11:05 12.5 MG Patient Own Medication 6 mg TID PO 09/07/25 22:00 Timolol Maleate 1 drop BID EACHEYE 09/07/25 22:00 09/08/25 10:00 1 DROP Empaglifozin 25 mg DAILY PO 09/08/25 10:00 09/08/25 11:07 25 MG Oxycodone/ Acetaminophen 2 tab Q6HP PRN PO 09/08/25 12:30 09/08/25 14:02 2 TAB Ceftriaxone Sodium/Dextrose 50 ml @ 50 mls/hr DAILY IV 09/09/25 10:00 UNV Examination General: Patient alert and oriented in person, place and time. Patient following commands. HEENT: Normocephalic, atraumatic, moist mucous membranes Respiratory/pulmonary: Clear lungs bilaterally, vesicular murmurs present in almost all lung kaur, no associated crackles or wheezes. Cardiovascular: Normal heart sounds S1 and S2 with no associated murmurs Abdomen: severe tenderness on palpation, superior umbilical induration draining clear to purulent discharge from belly button, Extremities: There is no peripheral edema present at the lower extremities. Peripheral Pulses: 3+ Radial (R). 3+ Radial (L). 3+ Dorsalis pedis (R). 3+ Dorsalis pedis(L) Skin: multiple keloids on surgical sites. Neurological: Intact cranial nerves with no focal neurologic deficits laboratory and microbiology Laboratory Tests 09/08/25 05:52 Test 09/08/25 05:52 Range/Units Serum Glucose 140 H 74-106 mg/dL Microbiology Date/Time Source Procedure Growth Status 09/07/25 09:37 Other Gram Stain - Final Resulted 09/07/25 09:37 Other Anaerobic Culture - Preliminary No growth Resulted 09/07/25 09:37 Other Aerobic Culture - Preliminary No growth Resulted 09/05/25 14:36 Blood Blood Culture - Final Escherichia coli Complete Problem List/Assessment/Plan Problem List/Assessment/Plan Sepsis likely due to abdominal wall abscess Abdominal wall abscess H/o colon cancer status post hemicolectomy ( reported to be in remission ) h/o cholecystectomy with keloids at surgical sites Slow Transit constipation Bilateral pleural effusion - CT abdomen pelvis without contrast showed 5.5 X2.9 X 4 cm collection containing fluid and gas at the umbilicus - IV fluids - blood culture showed Gram-negative rods - wound culture showed no growth. - surgical consult - I and D of abscess done - MiraLax and senna as needed for constipation - chest x-ray showed Pulmonary vascular congestion and small bilateral pleural effusions. - Started on full liquid diet advance as tolerated. - repeat blood cultures ordered - IV ceftriaxone - surgery signed of for discharge. TARA on CKD due to be VMN - IV fluids - monitor electrolytes and kidney function Type 2 diabetes mellitus with hyperglycemia, uncontrolled - HbA1c 8.9 - moderate insulin sliding scale Hypertensive heart disease History of pulmonary embolism - blood pressure medications held as the patient is septic - held Eliquis, started on enoxaparin therapeutic dose History of hypothyroidism - continued levothyroxine 112 mcg history of fibromyalgia history of glaucoma PPI prophylaxis: Protonix DVT prophylaxis: held lovenox for procedure Goals of care addressed with the patient for more than 27 minutes: Full code status Case discussed with Dr. Manning, patient and nurse Plan discussed with: Patient My Orders My Orders Orders - DALE BOWDEN Procedure Category Date Status Time Oxycodone W/ Acet PHA 09/08/25 In Process 5/325mg Tab (Percocet 12:30 Pt Request For Service PT 09/08/25 Logged 15:54 Blood Culture SABRINA 09/08/25 Transmitted 15:54 Ceftriaxone 2gm/50ml PHA 09/08/25 In Process (Rocephin 2gm/50ml) 15:59 Dietary Evaluation Review Comments: Nutrition Recommendation: 1) Carloz 1 pk BID 2) Ensure High Protein 240ml BID if PO intake <50% 3) Advance diet as medically feasible 4) Monitor NPO status, lab values, weight trend, and I/O Expected Outcomes/Goals: Intake to meet >75% estimated needs Lab values to improve FU 2-3 days Date of Service: Sep 08, 2025 Billing Provider: GISSELLE MANNING MD Common Visit Codes: [id number] INP/OBS CARE(HIGH) DALE BOWDEN Sep 08, 2025 16:02 GISSELLE MANNING MD Sep 08, 2025 18:25
[2025-09-09] VITALS (8 sets, daily range): BP systolic 84–161; BP diastolic 46–82; PULSE 63–76; RESP 17–18; TEMP 97.7–98.6; O2SAT 95–100
[2025-09-09 06:26] LABS: Hematocrit 32.5 % (36.0-46.0); Hemoglobin 10.8 g/dL (12.2-16.2); Mean Corpuscular Hemoglobin 28.7 pg (28.0-32.0); Mean Corpuscular Volume 86.2 fL (80.0-100.0); Nucleated Red Blood Cells % 0.0 %
[2025-09-09 06:31] LABS: Potassium 3.7 mmol/L (3.5-5.1); Sodium 143 mmol/L (136-145)
[2025-09-09 06:32] LABS: Anion Gap 12 (5-15); Carbon Dioxide 24 mmol/L (20-31)
[2025-09-09 06:33] LABS: Calcium 9.6 mg/dL (8.7-10.4)
[2025-09-09 06:38] LABS: BUN/Creatinine Ratio 19.4 (10.0-20.0); Blood Urea Nitrogen 20 mg/dL (9-23)
[2025-09-09 06:39] LABS: Chloride 107 mmol/L (98-107); Glucose 138 mg/dL (74-106)
--- NOTE | 2025-09-09 10:38 | DVHPN2 ---
Progress Note - Dictate Date Seen: Sep 09, 2025 Medical Necessity Reason Pt with a Central, PICC or Fol: No Subjective E: no major events o/n. feels better. vital signs Vital Sign Date Time Temp Pulse Resp B/P (MAP) Pulse Ox O2 Delivery O2 Flow Rate FiO2 09/09/25 09:51 149/72 09/09/25 09:50 69 09/09/25 09:06 98.1 18 98 98.1 09/08/25 20:00 Room Air* 0 21 Total Intake and Output 09/08/25 09/08/25 09/09/25 15:00 23:00 07:00 Intake Total 1400 ml 537 ml Output Total 3 ml Balance 1397 ml 537 ml medications Current Medications Medications Dose Ordered Sig/Reji Route Start Time Stop Time Status Last Admin Dose Admin Ondansetron HCl 4 mg Q6HPRN PRN IV 09/05/25 14:15 09/05/25 15:55 4 MG Morphine Sulfate 2 mg Q6HPRN PRN IV 09/05/25 14:45 09/06/25 14:14 2 MG Acetaminophen 650 mg Q6HP PRN PO 09/05/25 14:15 09/06/25 21:54 650 MG Polyethylene Glycol 17 gm DAILYPRN PRN PO 09/05/25 14:30 Sennosides 8.6 mg HS PO 09/05/25 22:00 09/08/25 21:56 8.6 MG Pantoprazole Sodium 40 mg DAILY IV 09/06/25 10:00 09/09/25 09:53 40 MG Enoxaparin Sodium 80 mg Q12HR SC 09/05/25 22:00 09/09/25 09:54 80 MG Diagnostic Test (Pha) 1 strip ACHS 09/05/25 22:00 09/09/25 06:08 1 STRIP Insulin Human Regular HS SC 09/05/25 22:00 09/07/25 22:00 6 UNITS Insulin Human Regular AC SC 09/06/25 07:00 09/09/25 06:07 2 UNITS Dextrose 50 ml UD PRN IV 09/05/25 19:00 Amlodipine Besylate 5 mg DAILY PO 09/06/25 10:00 09/09/25 09:51 5 MG Levothyroxine Sodium 112 mcg QAM@0600 PO 09/06/25 06:00 09/09/25 05:31 112 MCG Losartan Potassium 100 mg DAILY PO 09/06/25 10:00 09/09/25 09:50 100 MG Carvedilol 12.5 mg Q12HR PO 09/06/25 10:00 09/09/25 09:50 12.5 MG Patient Own Medication 6 mg TID PO 09/07/25 22:00 Timolol Maleate 1 drop BID EACHEYE 09/07/25 22:00 09/09/25 09:54 1 DROP Empaglifozin 25 mg DAILY PO 09/08/25 10:00 09/09/25 09:53 25 MG Oxycodone/ Acetaminophen 2 tab Q6HP PRN PO 09/08/25 12:30 09/09/25 03:43 2 TAB Ceftriaxone Sodium/Dextrose 50 ml @ 50 mls/hr DAILY@0900 IV 09/08/25 15:59 09/09/25 09:52 50 MLS/HR objective GEN: NAD ABD: drain with min serosang drainage. surgical dressing clean. laboratory and microbiology Laboratory Tests 09/09/25 05:53 Test 09/09/25 05:53 Range/Units Serum Glucose 138 H 74-106 mg/dL Assessment/Plan A: 1. POD #2 s/p incision and drainage of abdominal wall abscess and removal of infected mesh P: 1. local wound care with BID packing. recommend home health. 2. stable from surgery POV for DC 3. f/u in clinic next week. call [phone] for f/u appt. Dietary Evaluation Review Comments: Nutrition Recommendation: 1) Carloz 1 pk BID 2) Ensure High Protein 240ml BID if PO intake <50% 3) Advance diet as medically feasible 4) Monitor NPO status, lab values, weight trend, and I/O Expected Outcomes/Goals: Intake to meet >75% estimated needs Lab values to improve FU 2-3 days Plan discussed with: Patient KINA ESPAÑA MD Sep 09, 2025 10:38
--- NOTE | 2025-09-09 14:22 | DVHPNRES ---
Progress Note Date Seen: Sep 09, 2025 Resident Creating Document: DALE BOWDEN RESIDENT Medical Necessity Reason Pt with a Central, PICC or Fol: No Subjective Review of Systems Patient is a 65-year-old female with a medical history of colon cancer status post hemicolectomy with a colocolonic anastomosis, PE, insulin-dependent diabetes mellitus, Hypertension, fibromyalgia, glaucoma, hypothyroidism, hypertension presented to the ED with a chief complaint of abdominal pain which has been going on since the this FEBRUARY. Patient reported that she noticed hard mass near her belly button about 4 weeks ago which was initially painless but progressively became painful. Patient states that the mass "popped open" 1 week ago, Initially with whitish yellowish discharge which progressively became brownish in color for which her daughter forced her to go to the hospital. Patient states that she had a knot in her stomach since July 2025 which progressively worsened. Patient reported of chills, weakness but denied any fever at home. Patient reports getting a colonoscopy on July 2025. Medical history: insulin-dependent diabetes mellitus, Hypertension, fibromyalgia, glaucoma, Hypothyroidism PE Surgical history: Hemicolectomy 1 year ago, hysterectomy, cholecystectomy Social history: denies smoking, alcohol, drug use lives with: her daughter Home medications: Eliquis 5 mg b.i.d., amlodipine 5 mg, carvedilol 25 b.i.d., valsartan 160 mg b.i.d., levothyroxine 112 mcg, insulin 09/06/2025: Patient seen at bedside. Patient complains of 10/10 abdominal pain at site of drainage. Patient states she has chills. Patient chest pain, shortness of breath, nausea, vomiting, fever. surgery consulted. Blood culture showed Gram-positive rods. Patient on IV antibiotics. 09/07/25: Patient seen at bedside. Patient completed with I&D of abscess done with infected mesh. Patient is started on full liquid diet advance as tolerated. 09/08/2025: Patient seen at bedside. Patient complains of 8/10 abdominal pain at site of surgery. Patient denies any fever, chills, nausea, vomiting, diarrhea. Patient did have 1 loose bowel movement today. Repeat blood cultures were ordered. PT eval to be done. Incentive spirometry to be started. Discontinued clindamycin, Zosyn and started ceftriaxone. 09/09/2025: Patient seen at bedside. Patient complains of 5/10 abdominal pain. Patient denies any fever, chills, nausea, vomiting. surgery cleared patient for discharge. social service was consulted for home health for dressing changes. Repeat blood cultures pending. Objective vital signs Vital Sign Date Time Temp Pulse Resp B/P (MAP) Pulse Ox O2 Delivery O2 Flow Rate FiO2 09/09/25 13:00 98.1 74 18 150/76 (100) 100 98.1 09/09/25 08:00 Room Air* 0 21 Total Intake and Output 09/08/25 09/08/25 09/09/25 15:00 23:00 07:00 Intake Total 1400 ml 537 ml Output Total 3 ml Balance 1397 ml 537 ml medications Current Medications Medications Dose Ordered Sig/Reji Route Start Time Stop Time Status Last Admin Dose Admin Ondansetron HCl 4 mg Q6HPRN PRN IV 09/05/25 14:15 09/05/25 15:55 4 MG Morphine Sulfate 2 mg Q6HPRN PRN IV 09/05/25 14:45 09/06/25 14:14 2 MG Acetaminophen 650 mg Q6HP PRN PO 09/05/25 14:15 09/06/25 21:54 650 MG Polyethylene Glycol 17 gm DAILYPRN PRN PO 09/05/25 14:30 Sennosides 8.6 mg HS PO 09/05/25 22:00 09/08/25 21:56 8.6 MG Pantoprazole Sodium 40 mg DAILY IV 09/06/25 10:00 09/09/25 09:53 40 MG Enoxaparin Sodium 80 mg Q12HR SC 09/05/25 22:00 09/09/25 09:54 80 MG Diagnostic Test (Pha) 1 strip ACHS 09/05/25 22:00 09/09/25 11:36 1 STRIP Insulin Human Regular HS SC 09/05/25 22:00 09/07/25 22:00 6 UNITS Insulin Human Regular AC SC 09/06/25 07:00 09/09/25 12:02 3 UNITS Dextrose 50 ml UD PRN IV 09/05/25 19:00 Amlodipine Besylate 5 mg DAILY PO 09/06/25 10:00 09/09/25 09:51 5 MG Levothyroxine Sodium 112 mcg QAM@0600 PO 09/06/25 06:00 09/09/25 05:31 112 MCG Losartan Potassium 100 mg DAILY PO 09/06/25 10:00 09/09/25 09:50 100 MG Carvedilol 12.5 mg Q12HR PO 09/06/25 10:00 09/09/25 09:50 12.5 MG Patient Own Medication 6 mg TID PO 09/07/25 22:00 Timolol Maleate 1 drop BID EACHEYE 09/07/25 22:00 09/09/25 09:54 1 DROP Empaglifozin 25 mg DAILY PO 09/08/25 10:00 09/09/25 09:53 25 MG Oxycodone/ Acetaminophen 2 tab Q6HP PRN PO 09/08/25 12:30 09/09/25 12:03 2 TAB Ceftriaxone Sodium/Dextrose 50 ml @ 50 mls/hr DAILY@0900 IV 09/08/25 15:59 09/09/25 09:52 50 MLS/HR Examination General: Patient alert and oriented in person, place and time. Patient following commands. HEENT: Normocephalic, atraumatic, moist mucous membranes Respiratory/pulmonary: Clear lungs bilaterally, vesicular murmurs present in almost all lung kaur, no associated crackles or wheezes. Cardiovascular: Normal heart sounds S1 and S2 with no associated murmurs Abdomen: severe tenderness on palpation, superior umbilical induration draining clear to purulent discharge from belly button, Extremities: There is no peripheral edema present at the lower extremities. Peripheral Pulses: 3+ Radial (R). 3+ Radial (L). 3+ Dorsalis pedis (R). 3+ Dorsalis pedis(L) Skin: multiple keloids on surgical sites. Neurological: Intact cranial nerves with no focal neurologic deficits laboratory and microbiology Laboratory Tests 09/09/25 05:53 Test 09/09/25 05:53 Range/Units Serum Glucose 138 H 74-106 mg/dL Microbiology Date/Time Source Procedure Growth Status 09/07/25 09:37 Other Gram Stain - Final Resulted 09/07/25 09:37 Other Anaerobic Culture - Preliminary No growth Resulted 09/07/25 09:37 Other Aerobic Culture - Preliminary No growth Resulted 09/05/25 14:36 Blood Blood Culture - Final Escherichia coli Complete Problem List/Assessment/Plan Problem List/Assessment/Plan Sepsis likely due to abdominal wall abscess Abdominal wall abscess H/o colon cancer status post hemicolectomy ( reported to be in remission ) h/o cholecystectomy with keloids at surgical sites Slow Transit constipation Bilateral pleural effusion - CT abdomen pelvis without contrast showed 5.5 X2.9 X 4 cm collection containing fluid and gas at the umbilicus - IV fluids - blood culture showed Gram-negative rods - wound culture showed no growth. - surgical consult - I and D of abscess done - MiraLax and senna as needed for constipation - chest x-ray showed Pulmonary vascular congestion and small bilateral pleural effusions. - Started on full liquid diet advance as tolerated. - repeat blood cultures ordered - IV ceftriaxone - surgery signed of for discharge. TARA on CKD due to be VMN - IV fluids - monitor electrolytes and kidney function Type 2 diabetes mellitus with hyperglycemia, uncontrolled - HbA1c 8.9 - moderate insulin sliding scale Hypertensive heart disease History of pulmonary embolism - blood pressure medications held as the patient is septic - held Eliquis, started on enoxaparin therapeutic dose History of hypothyroidism - continued levothyroxine 112 mcg history of fibromyalgia history of glaucoma PPI prophylaxis: Protonix DVT prophylaxis: held lovenox for procedure Goals of care addressed with the patient for more than 27 minutes: Full code status Case discussed with Dr. Manning, patient and nurse Plan discussed with: Patient My Orders My Orders Orders - DALE BOWDEN RESIDENT Procedure Category Date Status Time Pt Request For Service PT 09/08/25 Logged 15:54 Blood Culture SABRINA 09/08/25 In Process 15:54 Ceftriaxone 2gm/50ml PHA 09/08/25 In Process (Rocephin 2gm/50ml) 15:59 Incentive Spirometry ORDERS 09/08/25 Transmitted 16:02 Advance Diet As RAMY 09/08/25 In Process Tolerated 16:04 Up To Chair RAMY 09/08/25 In Process 16:04 Soft Diet DIET 09/08/25 Transmitted Dinner * Therapy Manager CONS 09/09/25 Transmitted Consult Dietary Evaluation Review Comments: Nutrition Recommendation: 1) Carloz 1 pk BID 2) Ensure High Protein 240ml BID if PO intake <50% 3) Advance diet as medically feasible 4) Monitor NPO status, lab values, weight trend, and I/O Expected Outcomes/Goals: Intake to meet >75% estimated needs Lab values to improve FU 2-3 days Date of Service: Sep 09, 2025 Billing Provider: GISSELLE MANNING MD Common Visit Codes: [id number] INP/OBS CARE(HIGH) DALE BOWDEN RESIDENT Sep 09, 2025 14:22 GISSELLE MANNING MD Sep 09, 2025 21:13
[2025-09-10] VITALS (8 sets, daily range): BP systolic 88–132; BP diastolic 50–64; PULSE 53–68; RESP 16–19; TEMP 97.6–97.9; O2SAT 96–100
--- NOTE | 2025-09-10 12:21 | DVHPNRES ---
Progress Note Date Seen: Sep 10, 2025 Resident Creating Document: ULYSSES OSMAN RESIDENT Medical Necessity Reason Pt with a Central, PICC or Fol: No Subjective Review of Systems Patient is a 65-year-old female with a medical history of colon cancer status post hemicolectomy with a colocolonic anastomosis, PE, insulin-dependent diabetes mellitus, Hypertension, fibromyalgia, glaucoma, hypothyroidism, hypertension presented to the ED with a chief complaint of abdominal pain which has been going on since the this FEBRUARY. Patient reported that she noticed hard mass near her belly button about 4 weeks ago which was initially painless but progressively became painful. Patient states that the mass "popped open" 1 week ago, Initially with whitish yellowish discharge which progressively became brownish in color for which her daughter forced her to go to the hospital. Patient states that she had a knot in her stomach since July 2025 which progressively worsened. Patient reported of chills, weakness but denied any fever at home. Patient reports getting a colonoscopy on July 2025. Medical history: insulin-dependent diabetes mellitus, Hypertension, fibromyalgia, glaucoma, Hypothyroidism PE Surgical history: Hemicolectomy 1 year ago, hysterectomy, cholecystectomy Social history: denies smoking, alcohol, drug use lives with: her daughter Home medications: Eliquis 5 mg b.i.d., amlodipine 5 mg, carvedilol 25 b.i.d., valsartan 160 mg b.i.d., levothyroxine 112 mcg, insulin 09/06/2025: Patient seen at bedside. Patient complains of 10/10 abdominal pain at site of drainage. Patient states she has chills. Patient chest pain, shortness of breath, nausea, vomiting, fever. surgery consulted. Blood culture showed Gram-positive rods. Patient on IV antibiotics. 09/07/25: Patient seen at bedside. Patient completed with I&D of abscess done with infected mesh. Patient is started on full liquid diet advance as tolerated. 09/08/2025: Patient seen at bedside. Patient complains of 8/10 abdominal pain at site of surgery. Patient denies any fever, chills, nausea, vomiting, diarrhea. Patient did have 1 loose bowel movement today. Repeat blood cultures were ordered. PT eval to be done. Incentive spirometry to be started. Discontinued clindamycin, Zosyn and started ceftriaxone. 09/09/2025: Patient seen at bedside. Patient complains of 5/10 abdominal pain. Patient denies any fever, chills, nausea, vomiting. surgery cleared patient for discharge. social service was consulted for home health for dressing changes. Repeat blood cultures pending. 09/10/2025: Patient seen and examined at bedside. Mentioned no complaint. Surgery cleared the patient for discharge. [employer] was consulted for home health for wound care. Awaiting arrangement. Objective vital signs Vital Sign Date Time Temp Pulse Resp B/P (MAP) Pulse Ox O2 Delivery O2 Flow Rate FiO2 09/10/25 10:38 172/71 09/10/25 10:35 69 09/10/25 09:00 97.7 18 98 97.7 09/10/25 08:00 Room Air* 0 21 Total Intake and Output 09/09/25 09/09/25 09/10/25 15:00 23:00 07:00 Intake Total 50 ml 325 ml 840 ml Balance 50 ml 325 ml 840 ml medications Current Medications Medications Dose Ordered Sig/Reji Route Start Time Stop Time Status Last Admin Dose Admin Ondansetron HCl 4 mg Q6HPRN PRN IV 09/05/25 14:15 09/05/25 15:55 4 MG Morphine Sulfate 2 mg Q6HPRN PRN IV 09/05/25 14:45 09/06/25 14:14 2 MG Acetaminophen 650 mg Q6HP PRN PO 09/05/25 14:15 09/06/25 21:54 650 MG Polyethylene Glycol 17 gm DAILYPRN PRN PO 09/05/25 14:30 Sennosides 8.6 mg HS PO 09/05/25 22:00 09/09/25 21:59 8.6 MG Pantoprazole Sodium 40 mg DAILY IV 09/06/25 10:00 09/10/25 10:29 40 MG Enoxaparin Sodium 80 mg Q12HR SC 09/05/25 22:00 09/10/25 10:36 80 MG Diagnostic Test (Pha) 1 strip ACHS 09/05/25 22:00 09/10/25 11:30 1 STRIP Insulin Human Regular HS SC 09/05/25 22:00 09/09/25 22:01 4 UNITS Insulin Human Regular AC SC 09/06/25 07:00 09/10/25 06:16 2 UNITS Dextrose 50 ml UD PRN IV 09/05/25 19:00 Amlodipine Besylate 5 mg DAILY PO 09/06/25 10:00 09/10/25 10:38 5 MG Levothyroxine Sodium 112 mcg QAM@0600 PO 09/06/25 06:00 09/10/25 06:19 112 MCG Losartan Potassium 100 mg DAILY PO 09/06/25 10:00 09/10/25 10:34 100 MG Carvedilol 12.5 mg Q12HR PO 09/06/25 10:00 09/10/25 10:35 12.5 MG Patient Own Medication 6 mg TID PO 09/07/25 22:00 09/09/25 22:04 6 MG Timolol Maleate 1 drop BID EACHEYE 09/07/25 22:00 09/10/25 10:29 1 DROP Empaglifozin 25 mg DAILY PO 09/08/25 10:00 09/10/25 10:35 25 MG Oxycodone/ Acetaminophen 2 tab Q6HP PRN PO 09/08/25 12:30 09/10/25 06:20 2 TAB Ceftriaxone Sodium/Dextrose 50 ml @ 50 mls/hr DAILY@0900 IV 09/08/25 15:59 09/10/25 08:14 50 MLS/HR Examination Physical exam General: Patient alert and oriented in person, place and time. Patient following commands. HEENT: Normocephalic, atraumatic, moist mucous membranes Respiratory/pulmonary: Clear lungs bilaterally, vesicular murmurs present in almost all lung kaur, no associated crackles or wheezes. Cardiovascular: Normal heart sounds S1 and S2 with no associated murmurs Abdomen: no abd tenderness, MAGGIE drain present, wound dressing present Extremities: There is no peripheral edema present at the lower extremities. Peripheral Pulses: 3+ Radial (R). 3+ Radial (L). 3+ Dorsalis pedis (R). 3+ Dorsalis pedis(L) Skin: multiple keloids on surgical sites. Neurological: Intact cranial nerves with no focal neurologic deficits laboratory and microbiology Laboratory Tests 09/09/25 05:53 Test 09/09/25 05:53 Range/Units Serum Glucose 138 H 74-106 mg/dL Microbiology Date/Time Source Procedure Growth Status 09/08/25 16:37 Blood Blood Culture - Preliminary NO GROWTH AFTER 24 HOURS OF INCUBATION. Resulted 09/07/25 09:37 Other Gram Stain - Final Resulted 09/07/25 09:37 Other Anaerobic Culture - Preliminary No growth Resulted 09/07/25 09:37 Other Aerobic Culture - Preliminary No growth Resulted Labs and/or images reviewed: Labs reviewed by me, Image(s) reviewed by me Problem List/Assessment/Plan Problem List/Assessment/Plan Assessment and plan Sepsis likely due to abdominal wall abscess Abdominal wall abscess s/p Incision and drainage of abdominal wall abscess with removal of infected mesh H/o colon cancer status post hemicolectomy ( reported to be in remission ) h/o cholecystectomy with keloids at surgical sites Slow Transit constipation Bilateral pleural effusion - CT abdomen pelvis without contrast showed 5.5 X2.9 X 4 cm collection containing fluid and gas at the umbilicus - IV fluids - blood culture showed Gram-negative rods - wound culture showed no growth. - surgical consult - I and D of abscess done - MiraLax and senna as needed for constipation - chest x-ray showed Pulmonary vascular congestion and small bilateral pleural effusions. - Started on full liquid diet advance as tolerated. - repeat blood cultures ordered - IV ceftriaxone - surgery signed of for discharge. . TARA on CKD due to be VMN - IV fluids - monitor electrolytes and kidney function Type 2 diabetes mellitus with hyperglycemia, uncontrolled - HbA1c 8.9 - moderate insulin sliding scale Hypertensive heart disease History of pulmonary embolism - blood pressure medications held as the patient is septic - held Eliquis, started on enoxaparin therapeutic dose History of hypothyroidism - continued levothyroxine 112 mcg history of fibromyalgia history of glaucoma PPI prophylaxis: Protonix DVT prophylaxis: therapeutic Lovenox Goals of care addressed with the patient for more than 27 minutes: Full code status Case discussed with Dr. Manning, patient and nurse Plan discussed with: Patient, Other Dietary Evaluation Review Comments: Nutrition Recommendation: 1) Carloz 1 pk BID 2) Ensure High Protein 240ml BID if PO intake <50% 3) Advance diet as medically feasible 4) Monitor NPO status, lab values, weight trend, and I/O Expected Outcomes/Goals: Intake to meet >75% estimated needs Lab values to improve FU 2-3 days Date of Service: Sep 10, 2025 Billing Provider: GISSELLE MANNING MD Common Visit Codes: [id number] INP/OBS CARE(HIGH) ULYSSES OSMAN RESIDENT Sep 10, 2025 12:21 GISSELLE MANNING MD Sep 10, 2025 22:10
[2025-09-11 01:09] VITALS: BP 104/66; PULSE 67; RESP 16; TEMP 98.5; O2SAT 99
[2025-09-11 04:36] VITALS: BP 99/61; PULSE 64; RESP 18; TEMP 97.7; O2SAT 98
[2025-09-11 09:00] VITALS: BP_SYST 123; BP_SYST 99; BP_DIAS 58; BP_DIAS 90; PULSE 60; PULSE 83; RESP 19; RESP 20; TEMP 97.2; TEMP 98.4; O2SAT 96; O2SAT 99
[2025-09-11 13:00] VITALS: BP 164/93; PULSE 76; RESP 21; TEMP 99.2; O2SAT 100
--- NOTE | 2025-09-11 14:17 | CONS ---
Pharmacy Clinical Information: From Heart Failure Fallout Report on CQM Application, Alessandra Naylor is a 65 year old female with PMH of insulin-dependent diabetes mellitus, hypertension, fibromyalgia, glaucoma, hypothyroidism, PE Per 2024 ADA guidelines, for people with diabetes aged 4075 years at higher cardiovascular risk, including those with one or more additional ASCVD risk factors, high-intensity statin therapy is recommended. Please add a lipid lowering agent if clinically appropriate [facility] Sep 11, 2025 14:17
[2025-09-11] MEDS ORDERED: LEVO750T40 PO (15:05)
[2025-09-11] MEDS ORDERED: SENN8.6C PO (15:05)
[2025-09-11] MEDS ORDERED: EMPA1TAB PO (15:05)
--- NOTE | 2025-09-11 16:24 | DVHDSRES ---
Discharge Summary Date of Admission Resident Creating Document: ULYSSES OSMAN RESIDENT Sep 05, 2025 at 14:09 Date of Discharge: Sep 11, 2025 Admitting Diagnosis Sepsis likely due to abdominal wall abscess Labs/Diagnostic Data: Laboratory Results Test 09/11/25 11:15 09/09/25 05:53 09/07/25 05:39 09/06/25 05:43 POC Glucose 116 mg/dl (70-106) White Blood Count 7.9 10^3/uL (4.4-10.8) Red Blood Count 3.77 10^6/uL (4.0-5.20) Hemoglobin 10.8 g/dL (12.2-16.2) Hematocrit 32.5 % (36.0-46.0) Mean Corpuscular Volume 86.2 fL (80.0-100.0) Mean Corpuscular Hemoglobin 28.7 pg (28.0-32.0) Mean Corpuscular Hemoglobin Concent 33.3 g/dL (32.0-36.0) Red Cell Distribution Width 13.9 % (11.8-14.3) Platelet Count 291 10^3/uL (140-450) Mean Platelet Volume 7.5 fL (6.9-10.8) Neutrophils (%) (Auto) 50.0 % (37.0-80.0) Lymphocytes (%) (Auto) 40.7 % (10.0-50.0) Monocytes (%) (Auto) 5.9 % (0.0-12.0) Eosinophils (%) (Auto) 3.0 % (0.0-7.0) Basophils (%) (Auto) 0.4 % (0.0-2.0) Neutrophils # (Auto) 3.9 10 ^3/uL (1.6-8.6) Lymphocytes # (Auto) 3.2 10 ^3/uL (0.4-5.4) Monocytes # (Auto) 0.5 10 ^3/uL (0-1.3) Eosinophils # (Auto) 0.2 10 ^3/uL (0-0.8) Basophils # (Auto) 0 10 ^3/uL (0-0.2) Nucleated Red Blood Cells 0.0 % Sodium Level 143 mmol/L (136-145) Potassium Level 3.7 mmol/L (3.5-5.1) Chloride Level 107 mmol/L (98-107) Carbon Dioxide Level 24 mmol/L (20-31) Anion Gap 12 (5-15) Blood Urea Nitrogen 20 mg/dL (9-23) Creatinine 1.03 mg/dL (0.550-1.02) Glomerular Filtration Rate Calc 60 mL/min (>90) BUN/Creatinine Ratio 19.4 (10.0-20.0) Serum Glucose 138 mg/dL (74-106) Calcium Level 9.6 mg/dL (8.7-10.4) Total Bilirubin 0.7 mg/dL (0.2-1.0) Aspartate Amino Transferase (AST) 35 U/L (13-40) Alanine Aminotransferase (ALT) 31 U/L (7-40) Alkaline Phosphatase 64 U/L (46-116) Total Protein 7.3 g/dL (5.7-8.2) Albumin 4.0 g/dL (3.2-4.8) Hemoglobin A1c 8.9 % A1C (<5.7) Random Vancomycin Level 9.8 ug/mL (5-10) Test 09/05/25 19:35 09/05/25 14:28 09/05/25 11:38 Urine Color Colorless (Yellow) Urine Clarity Clear (Clear) Urine pH 5.5 (5.0-9.0) Urine Specific [place] 1.011 (1.001-1.035) Urine Protein Negative (Negative) Urine Ketones Negative (Negative) Urine Blood Negative /uL (Negative) Urine Nitrite Negative (Negative) Urine Bilirubin Negative (Negative) Urine Urobilinogen Normal mg/dL (Negative) Urine Leukocyte Esterase Negative /uL (Negative) Urine RBC None seen /hpf (0 - 4) Urine Microscopic WBC < 1 /HPF (0-5) Urine Squamous Epithelial Cells Few /hpf (<5) Urine Bacteria None seen /hpf (None Seen) Urine Glucose Normal mg/dL (Normal) Lactic Acid Level 1.3 mmol/L (0.4-2.0) Prothrombin Time 10.8 sec (9.3-11.8) Prothrombin Time INR 1.02 (0.9-1.15) Activated Partial Thromboplast Time 25.9 SEC (24.5-34.5) Troponin I High Sensitivity 28 ng/L (</=34) Thyroid Stimulating Hormone (TSH) 3.09 uIU/mL (0.55-4.78) Other Laboratory Tests 09/09/25 05:53 Brief Hx & Hospital Course: Patient is a 65-year-old female with a medical history of colon cancer status post hemicolectomy with a colocolonic anastomosis, PE, insulin-dependent diabetes mellitus, Hypertension, fibromyalgia, glaucoma, hypothyroidism, hypertension presented to the ED with a chief complaint of abdominal pain which has been going on since the this FEBRUARY. Patient reported that she noticed hard mass near her belly button about 4 weeks ago which was initially painless but progressively became painful. Patient states that the mass "popped open" 1 week ago, Initially with whitish yellowish discharge which progressively became brownish in color for which her daughter forced her to go to the hospital. Patient states that she had a knot in her stomach since July 2025 which progressively worsened. Patient reported of chills, weakness but denied any fever at home. Patient reports getting a colonoscopy on July 2025. Medical history: insulin-dependent diabetes mellitus, Hypertension, fibromyalgia, glaucoma, Hypothyroidism PE Surgical history: Hemicolectomy 1 year ago, hysterectomy, cholecystectomy Social history: denies smoking, alcohol, drug use lives with: her daughter Home medications: Eliquis 5 mg b.i.d., amlodipine 5 mg, carvedilol 25 b.i.d., valsartan 160 mg b.i.d., levothyroxine 112 mcg, insulin Brief hospital course: Patient came with intractable abdominal pain due to abdominal wall abscess and had sepsis. Patient had abdominal wall abscess status post incision and drainage of abdominal wall abscess with removal of infected mesh. Patient has slow transit constipation. CT abdomen showed 5.5 X2.9 X 4 cm collection containing fluid and gas at the umbilicus. blood culture and wound culture ordered and blood culture showed E coli positive repeat blood culture ordered and showed negative. Surgical consult was placed, I and D was done. Patient was started on full liquid diet and was advanced as tolerated. Patient was on IV ceftriaxone. patient had TARA on CKD. History of diabetes mellitus for which moderate insulin sliding scale was started. Patient had history of pulmonary embolism Eliquis was held due to procedure. Patient is stable for discharge . Patient understood that she has to follow-up with PCP, discharge Clinic in 1 week. patient is to follow-up with surgery for removal MAGGIE drain In 1 week. General: Patient alert and oriented in person, place and time. Patient following commands. HEENT: Normocephalic, atraumatic, moist mucous membranes Respiratory/pulmonary: Clear lungs bilaterally, vesicular murmurs present in almost all lung kaur, no associated crackles or wheezes. Cardiovascular: Normal heart sounds S1 and S2 with no associated murmurs Abdomen: severe tenderness on palpation, superior umbilical induration draining clear to purulent discharge from belly button, Extremities: There is no peripheral edema present at the lower extremities. Peripheral Pulses: 3+ Radial (R). 3+ Radial (L). 3+ Dorsalis pedis (R). 3+ Dorsalis pedis(L) Skin: multiple keloids on surgical sites. Neurological: Intact cranial nerves with no focal neurologic deficits patient is to take levofloxacin 750 mg for 10 days. Operations or Procedures ORDERING PHYSICIAN: SALVADOR PANCHAL MD PROCEDURE(s): ABPL - CT AB PEL WO CON-NO ORAL OR IV REASON: wound ORDER NUMBER(s): [id number], ACCESSION NUMBER(s): [id number] CLINICAL HISTORY: wound TECHNIQUE: CT of the abdomen and pelvis was performed without IV contrast. This exam was performed according to our departmental dose optimization program. Up-to-date CT equipment and radiation dose reduction techniques are utilized as appropriate. CTDI 14.7 DLP 732 COMPARISON: None. FINDINGS: Abdomen/Pelvis: There has been right hemicolectomy with reanastomosis. At the umbilicus just deep to the anterior abdominal wall musculature, there is a 5.5 x 2.9 x 4.0 cm collection containing fluid and gas. There is diastases recti. The spleen, pancreas, adrenal glands, liver, kidneys, and bladder are grossly unremarkable. The gallbladder and uterus are absent. The abdominal aorta is normal in course and caliber. There are mild aortic atherosclerotic calcifications. There is no free intraperitoneal air or fluid. There is no enlarged abdominal pelvic lymph node. Other: The imaged lower thorax demonstrates coronary artery calcifications. No acute osseous abnormality is evident. Impression: 5.5 x 2.9 x 4.0 cm collection containing fluid and gas at the umbilicus just deep to the anterior abdominal wall musculature. Collection likely represent an abscess with a bowel fistula in the differential. Right hemicolectomy. Hysterectomy. Cholecystectomy. Coronary artery calcifications. ATED BY: RUSLAN MURRY MD DICTATED DATE/TIME: 09/05/25 1308 SIGNED BY: RUSLAN MURRY MD SIGNED DATE/TIME: 09/05/25 1308 ORDERING PHYSICIAN: SALVADOR PANCHAL MD PROCEDURE(s): CXRP - CHEST PORTABLE REASON: sob ORDER NUMBER(s): [id number], ACCESSION NUMBER(s): [id number] CHEST RADIOGRAPH Indication: sob Technique: XY CHEST PORTABLE Comparison: None FINDINGS: The cardiac silhouette is unremarkable. The lungs demonstrate no pulmonary airspace consolidation. The pulmonary vasculature is prominent. Small bilateral pleural effusions. There is no pneumothorax. IMPRESSION: Pulmonary vascular congestion and small bilateral pleural effusions. ATED BY: SANDOVAL NGO MD DICTATED DATE/TIME: 09/05/25 1322 SIGNED BY: SANDOVAL NGO MD SIGNED DATE/TIME: 09/05/25 1322 Condition at Discharge: Stable Final Diagnosis/Problems List Sepsis likely due to abdominal wall abscess Abdominal wall abscess H/o colon cancer status post hemicolectomy ( reported to be in remission ) h/o cholecystectomy with keloids at surgical sites Slow Transit constipation Bilateral pleural effusion TARA on CKD due to be VMN Type 2 diabetes mellitus with hyperglycemia, uncontrolled Hypertensive heart disease History of pulmonary embolism History of hypothyroidism history of fibromyalgia history of glaucoma Discharge Disposition: Home with Health Services Discharge Instruct/Medications Diet: Consistent carbohydrate Activity: No Restrictions, As Tolerated Follow Up/Referral: Follow-up with discharge Clinic, PCP in 1 week Follow-up with surgery for removal of MAGGIE drain in 1 week Medications: Levofloxacin 500 mg for 10 days Scheduled Amlodipine Besylate (Amlodipine Besylate), 5 MG PO DAILY, (Reported) Apixaban Base (Eliquis), 1 TAB PO BID, (Reported) Carvedilol (Carvedilol), 25 MG PO Q12HR, (Reported) Cyclosporine (Ophth) (Cyclosporine), 1 DROP EACHEYE BID, (Reported) Dorzolamide-Timolol (Dorzolamide Hcl/Timolol M), 1 DROP EACHEYE BID, (Reported) Empagliflozin (Jardiance), 10 MG PO DAILY Insulin Glargine (Basaglar Kwikpen), 15 UNIT SC QPM, (Reported) Levofloxacin Hemihydrate (Levofloxacin), 750 MG PO DAILY Levothyroxine Sodium (Levothyroxine Sodium), 112 MCG PO DAILY, (Reported) Methylnaltrexone Monrovia (Relistor), 3 TAB PO DAILY PRN, (Reported) Timolol Maleate (Ophth) (Timolol Maleate), 1 DROP EACHEYE BID, (Reported) Tizanidine Hydrochloride (Zanaflex), 6 MG PO TID, (Reported) Valsartan-Hydrochlorothiazide (Valsartan/Hydrochlorothia), 1 TAB PO DAILY, (Reported) Scheduled PRN Oxycodone W/ Acetaminophen (Apap/Oxycodone), 1 TAB PO QID PRN for PAIN IN UNSPECIFIED KNEE, (Reported) Sennosides (Senna), 8.6 MG PO HS PRN Discontinued Medications Empagliflozin (Jardiance), 1 TAB PO DAILY, (Reported) Patients Own Medication (Patients Own Medication), (Reported) Discontinued Reason: Prescription changed Valsartan (Valsartan), 160 MG PO DAILY, (Reported) Discontinued Reason: Prescription changed Discharge Statement: "Patient was advised to return to the ER or call 911 if any headaches, dizziness, shortness of breath, chest pain, abdominal pain, bleeding, fevers, or worsening of medical condition. Patient was counseled about treatment plan, medications, possible side effects, patientverbalized understanding. All questions were answered to the best of my ability. This discharge took greater then 30 minutes in planning, reviewing documentation, counseling the patient, and discussing with other team members." ASSESSMENT ASSESSMENT Assessment 1. Abdominal wall abscess with infected mesh Date of Service: Sep 11, 2025 Billing Provider: GISSELLE TALBOT MD Common Visit Codes: 21542-RLX/OBS DISCH DAY >30min DALE BOWDEN Sep 11, 2025 16:24 GISSELLE TALBOT MD Sep 12, 2025 01:55
[2025-09-11 16:30] VITALS: BP 149/87; PULSE 65; RESP 18; TEMP 98.6; O2SAT 99
== END 2025-09-11 17:25 | disposition home health service (06) | DRG 907 ==
LOC: ER 10:40 → OVERFLOW 14:09 → TELE-EAST 23:36 → EAST 09-10 12:54
PROVIDERS: ADMIT Internal Medicine; ATTEND Internal Medicine
PROC: 0WPF0JZ Removal of Synthetic Substitute from Abdominal Wall, Open Approach (ICD-10-PCS; 2025-09-07)
PROC: 0W9F0ZZ Drainage of Abdominal Wall, Open Approach (ICD-10-PCS; principal; 2025-09-07 09:10)
DX: T85.79XA Infection and inflammatory reaction due to other internal prosthetic devices, implants and grafts, initial encounter (principal); N17.0 Acute kidney failure with tubular necrosis; J90 Pleural effusion, not elsewhere classified; L02.211 Cutaneous abscess of abdominal wall; E11.65 Type 2 diabetes mellitus with hyperglycemia; E03.9 Hypothyroidism, unspecified; I13.10 Hypertensive heart and chronic kidney disease without heart failure, with stage 1 through stage 4 chronic kidney disease, or unspecified chronic kidney disease; N18.9 Chronic kidney disease, unspecified; M79.7 Fibromyalgia; K59.01 Slow transit constipation; E11.22 Type 2 diabetes mellitus with diabetic chronic kidney disease; Y83.2 Surgical operation with anastomosis, bypass or graft as the cause of abnormal reaction of the patient, or of later complication, without mention of misadventure at the time of the procedure; Z90.49 Acquired absence of other specified parts of digestive tract; Z90.710 Acquired absence of both cervix and uterus; Z85.038 Personal history of other malignant neoplasm of large intestine; Z86.711 Personal history of pulmonary embolism; Z80.3 Family history of malignant neoplasm of breast; Z82.49 Family history of ischemic heart disease and other diseases of the circulatory system
CPT/HCPCS: 36415; 71045; 74176; 80048; 80053; 80202; 81001; 82962; 83036; 83605; 84443; 84484; 85025; 85610; 85730; 86850; 86900; 86901; 87040; 87070; 87075; 87077; 87081; 87186; 87205; 96361; 96365; 97163; 99291; G0378; J0330; J1100; J1815; J1885; J2250; J2405; J2470; J2543; J3490